=== PATIENT | male | born 1950 | race Caucasian/White ===

== ENCOUNTER 2017-03-17 07:27 | Outpatient (CLI) | payer MEDICARE ==
[2017-03-17 10:18] LABS: Bilirubin Negative (Negative); Blood, Urine Negative (Negative); Glucose, Urine (Dipstick) Negative (Negative); Ketone, Urine Negative (Negative); Nitrite Negative (Negative); Protein, Urine (Dipstick) Negative (Neg-Trace); Urobilinogen 0.2 mg/dL (0.2-1.0)
[2017-03-17 10:20] LABS: Bacteria/HPF None Seen HPF (None Seen); Hyaline Casts/LPF 0-3 HYALINE CAST LPF (0-3 Hyaline); RBC/HPF None Seen HPF (0-3); Squamous Epithelial None Seen HPF (0-3); WBC/HPF None Seen HPF (0-3)
[2017-03-17 11:03] LABS: ALT (SGPT) 12 U/L (8-55); AST (SGOT) 13 U/L (5-34); Alkaline Phosphatase 102 U/L (40-150); Anion Gap 11 mmol/L (10-20); BUN (Urea Nitrogen) 17 mg/dL (8.4-25.7); Bilirubin, Total 0.7 mg/dL (0.2-1.2); Calc. Creatinine Clearance 0 mL/min (70-130); Calcium 9.5 mg/dL (7.8-10.44); Carbon Dioxide 26 mmol/L (23-31); Chloride 107 mmol/L (98-107); Estimated GFR-MDRD 78; Protein, Total 7.1 g/dL (5.8-8.1)
--- NOTE | 2017-03-17 11:39 | CT ---
CT CHEST WITH IV CONTRAST: HISTORY: Kidney cancer. Initial staging. FINDINGS: There is no focal parenchymal lung mass or infiltrate. Minimal atelectasis is present at the depend ent portion of each lung. There is no pleural fluid, pneumothorax, or mediastinal adenopathy appare nt. The inferiormost images partially demonstrate the right renal mass that is better detailed on recent MRI and CT abdomen exam. IMPRESSION: No evidence of metastatic disease of the chest. POS: PLACIDO
--- NOTE | 2017-03-17 11:48 | MRI ---
MRI OF THE ABDOMEN WITHOUT AND WITH CONTRAST: Comparison: None. History: Malignant neoplasm of the right kidney. Technique: Multiplanar, multisequence MR images are obtained of the abdomen without and with IV cont rast. FINDINGS: There is a mass which appears infiltrative and involves the majority of the right kidney. This invol ves the hilar region of the right kidney. There is an exophytic portion of the mass extending latera l to the right kidney. This portion measures approximately 4.4 cm in size. There is tumor thrombus e xtending into the right renal vein which is enlarged. This tumor thrombus is also seen extending int o the inferior vena cava up to the inferior edge of the liver without involvement of the intrahepati c inferior vena cava. There are tiny nonenhancing foci of high T2 signal in both kidneys which represent simple cysts. The liver, gallbladder, adrenal glands, spleen and pancreas are unremarkable. No abdominal adenopathy i s seen. No marrow signal abnormality is seen to suggest osseous metastatic disease. IMPRESSION: 1. Mass involving the majority of the right kidney demonstrates tumor thrombus extending into the ri ght renal vein and up the inferior vena cava to the inferior edge of the liver. This is evidence for malignant disease with involvement of the venous structures which would make this a stage 3A. 2. Renal cysts. POS: KILEY
[2017-03-17] MEDS ORDERED: Iopamidol 370 76% 100 ML VIAL ONE (16:01)
[2017-03-17] MEDS ORDERED: Gadobenate Dimeglumine 529 MG/1 ML (20ML VIAL) ONE (16:02)
== END 2017-03-17 07:28 | disposition home or self-care (01) ==
LOC: MRI 07:27
PROVIDERS: ATTEND Urology
DX: C64.1 Malignant neoplasm of right kidney, except renal pelvis (principal); N28.1 Cyst of kidney, acquired
CPT/HCPCS: 36415; 71260; 74183; 80053; 81001; A9579

== ENCOUNTER 2017-03-23 10:34 | Outpatient (CLI) | payer MEDICARE ==
--- NOTE | 2017-03-23 14:59 | NM ---
WHOLE BODY BONE SCAN: Date: 03/23/17 CLINICAL HISTORY: Right renal malignancy, malignant neoplasm of right kidney. RADIOPHARMACEUTICAL: 30.2 mCi technetium-99m MDP, IV. No prior bone scan imaging available for comparison. FINDINGS: There is scattered degenerative activity of the axial and appendicular skeleton. No evidence of foca l radiotracer uptake to confirm blastic osseous metastasis No definitive photopenic regions to indic ate lytic osseous lesion within limitations. IMPRESSION: No scintigraphic evidence to confirm osseous metastatic disease. POS: PLACIDO
== END 2017-03-23 10:35 | disposition home or self-care (01) ==
LOC: NM 10:34
PROVIDERS: ATTEND Urology
DX: C64.1 Malignant neoplasm of right kidney, except renal pelvis (principal)
CPT/HCPCS: 78306; A9503

== ENCOUNTER 2017-05-10 08:35 | Inpatient (IN) | payer MEDICARE ==
[2017-05-10 09:12] LABS: #Basophils 0.1 thou/uL (0.0-0.2); #Eosinphils 0.2 thou/uL (0.0-0.7); #Lymphocytes 1.1 thou/uL (1.20-3.40); #Monocytes 0.7 thou/uL (0.11-0.59); #Neutrophils 3.4 thou/uL (1.40-6.50); %Eosinophils 3.3 % (0.0-10.0); %Lymphocytes 21.1 % (21.0-51.0); Hematocrit 39.2 % (42.0-52.0); Mean Platelet Volume 6.8 fL (7.4-10.4); Red Blood Cell (RBC) Count 4.18 mill/uL (4.70-6.10); White Blood Cell (WBC) Count 5.4 thou/uL (4.8-10.8)
[2017-05-10 09:31] LABS: ALT (SGPT) 50 U/L (8-55); AST (SGOT) 28 U/L (5-34); Alkaline Phosphatase 149 U/L (40-150); Anion Gap 11 mmol/L (10-20); BUN (Urea Nitrogen) 21 mg/dL (8.4-25.7); Bilirubin, Total 1.2 mg/dL (0.2-1.2); CK (CPK) 16 U/L (30-200); Calc. Creatinine Clearance 0 mL/min (70-130); Carbon Dioxide 25 mmol/L (23-31); Chloride 101 mmol/L (98-107); Estimated GFR-MDRD 56; Globulin 3.5 g/dL (2.4-3.5); Lipase 68 U/L (8-78); Protein, Total 7.2 g/dL (5.8-8.1)
[2017-05-10 09:37] LABS: PTT 36.4 SEC (22.9-36.1); Prothrombin Time 20.1 SEC (12.0-14.7); Troponin I Less than 0.010 ng/mL (< 0.028)
[2017-05-10 09:59] LABS: Bilirubin Small (Negative); Blood, Urine Large (Negative); Glucose, Urine (Dipstick) Negative (Negative); Ketone, Urine Negative (Negative); Nitrite Negative (Negative); Protein, Urine (Dipstick) 30 mg/dL (Neg-Trace); Urobilinogen 0.2 mg/dL (0.2-1.0)
[2017-05-10 10:00] LABS: Bacteria/HPF None Seen HPF (None Seen); Hyaline Casts/LPF 0-3 HYALINE CAST LPF (0-3 Hyaline); RBC/HPF GREATER THAN 50-TNTC HPF (0-3); Squamous Epithelial 0-3 HPF (0-3)
[2017-05-10] MEDS ORDERED: Enoxaparin Sodium 80 MG/0.8 ML SYRINGE ONE (11:39)
[2017-05-10] MEDS ORDERED: Acetaminophen 325 MG TAB PO PRN (12:22)
[2017-05-10] MEDS ORDERED: Ondansetron HCl/PF 4 MG/2 ML Vial IVP PRN (12:22)
[2017-05-10] MEDS ORDERED: Ondansetron ODT 4 MG TAB SL PRN (12:22)
[2017-05-10 12:24] LABS: Troponin I Less than 0.010 ng/mL (< 0.028)
--- NOTE | 2017-05-10 12:29 | CT ---
CT ANGIO CHEST PERFORMED WITH IV CONTRAST ENHANCEMENT WITH 3D RECONSTRUCTIONS: Date: 05/10/17 HISTORY: Patient is status post recent right nephrectomy, now with shortness of breath. COMPARISON: Multiple previous examinations including CT of the chest dated 03/17/17 and MRI of the abdomen dated 03/17/17, and CT of the chest dated 01/04/08. FINDINGS: Since the most recent chest CT, there has been development of some pleural based areas of parenchymal density in both lung aldridge. This is associated with fairly extensive bilateral pulmonary emboli. Th e largest emboli are in the right lower lobe and at the junction of left upper and lower lobes. Some of these pleural based changes are probably related to Stanford-type pumps related to pulmonary embolu s. No pleural effusion is seen. No significant mediastinum or hilar adenopathy. Liver parenchyma shows a hypodense focus in the dome of the liver. This is present on the prior 2007 exam and shows what appears to be some enhancement on previous CT of chest. Given its stability, it i s most likely hemangioma. The right renal bed is incompletely visualized. There is some low attenuation density seen in the upp er portion incompletely characterized. Consideration for CT for assessment of this area suggested if indicated. It could just be recent nephrectomy change. IMPRESSION: 1. Fairly extensive bilateral pulmonary emboli as discussed above. 2. Probable small hemangioma of the right lobe of the liver. 3. Postop nephrectomy change. The right renal bed is not completely visualized on this exam. There i s low attenuation density seen. This could represent some postsurgical change, possibly some clot in this region. If indicate, CT of the abdomen would be recommended. Findings telephoned to Dr. Driscoll. CODE CR. POS: [facility]
[2017-05-10] MEDS ORDERED: Amlodipine 10 MG TAB PO SCH (12:30)
[2017-05-10] MEDS ORDERED: cefTRIAXone\\ROCEPHIN 2 GM in Sodium Chloride 0.9% 100 ML IVPB SCH (13:00)
[2017-05-10] MEDS: HYDROcodone/Acetaminophen 10/325 mg Tablet PO PRN ×2 (13:43→19:54)
[2017-05-10] MEDS ORDERED: Polyethylene Glycol 3350 17 GM Packet PO SCH (14:00)
[2017-05-10 14:01] LABS: Hematocrit 37.5 % (42.0-52.0)
--- NOTE | 2017-05-10 14:28 | HP ---
PRIMARY CARE PHYSICIAN: Dr. William Delgado. CHIEF COMPLAINT: Blood in urine and abdominal pain. HISTORY OF PRESENT ILLNESS: This is a 66-year-old male patient of Dr. William Delgado's who was diagnos ed with renal cell carcinoma in 02/2017. He has been followed by Dr. Marroquin here for Urology as wel l as Dr. Montalvo for Oncology. Dr. Montalvo recommended a nephrectomy and patient was sent to [place] , I believe at [facility], Dr. Ayala where they performed a nephrectomy on 04/20/2017. The surgery was complicated by the tumor involving the renal vein as well as vena cava. He had thromboses that m igrated to the lungs, requiring ECMO therapy. He continued to have bleeding postoperatively and had to have thrombosis removed from the pulmonary arteries. He was then started on Lovenox and Coumadin for anti-coagulation. He had resultant wound VAC placed postoperatively and was discharged home foll owing his recovery from this. Pathology has revealed a stage 3 renal cell carcinoma with margins not clear. He had had an unremarkable postoperative stay at home except for pain, which was controlled with Raleigh until yesterday when he developed some darkening in his urine and then developed what his noticed was travis blood yesterday as well. He presented to the Emergency Department and was fou nd to have still a subtherapeutic INR on his Coumadin level, but gross blood in his urine. He was in any more anemic, but is being admitted for further evaluation, follow up with Urology and monitoring of his bleeding. PAST MEDICAL HISTORY: History of facial basal cell carcinoma, again recent diagnosis of stage 3 lorrie l cell carcinoma, history of hypertension, postoperative pulmonary embolism on anticoagulation, nephr olithiasis, hypertension, basal cell carcinoma and low back pain. MEDICATIONS: Include aspirin 81 mg discontinued, pravastatin 20 mg daily, hydrocodone 10/325 q.6 jey rs p.r.n. He is on Lovenox daily as well as Coumadin daily, omeprazole 10 mg daily, Norvasc 10 mg p. r.n., Bumex daily and stool softener daily. ALLERGIES: None known. PAST SURGICAL HISTORY: Hernia repair, right nephrectomy in 03/2017 And multiple skin cancer removal. FAMILY HISTORY: Father with lung cancer. Mother with liver cancer and heart disea se. Siblings with schizophrenia and breast cancer. SOCIAL HISTORY: Quit smoking in 1982 after a 12-year history of smoking 1-pack per day. No drug use . Positive caffeine. 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 He is . REVIEW OF SYSTEMS: As per the history of present illness. General: Denies any recent fevers, chill s or recent illness. HEENT: Denies headache, visual or hearing changes. Cardiac: Denies chest frederick n, shortness of breath or palpitations. Pulmonary: Denies cough, shortness of breath or hemoptysis. Gastrointestinal: Denies nausea, vomiting, abdominal pain, melena or hematochezia. Genitourinary: As per the history of present illness. Neurologic: Positive weakness. No seizures or syncope. PHYSICAL EXAMINATION: VITAL SIGNS: Temperature is afebrile, heart rate 80-90, blood pressure was 135/88 and pulse ox dean l. GENERAL: He is awake and alert, in no acute distress, resting comfortably in the stretcher. HEENT: Mucosa is moist. NECK: Supple. No JVD, adenopathy or bruits. HEART: Regular rate and rhythm. LUNGS: Clear. ABDOMEN: With wound VAC in place. Positive bowel sounds. Soft to light palpation. EXTREMITIES: No clubbing, cyanosis or edema. 2+ peripheral pulses bilaterally. LABORATORY DATA: White blood cell count 5.4 thousand, hemoglobin and hematocrit 12.7 and 39.2, plate lets 438. PT 20.1 and PTT of 36.4. INR of 1.7. Sodium 133, potassium 4.2, chloride 101, CO2 of 25, BUN and creatinine 21 and 1.28 with a GFR of 56. AST and ALT are normal. Cardiac enzymes are negat chel. Urinalysis revealed large blood while urinalysis from 1 week ago was negative for blood, brown color, 30 protein, small bilirubin, too numerous to count red blood cells. Urine culture is pending. CT of the chest is pending as well. ASSESSMENT AND PLAN: This is a 66-year-old gentleman with a; 1. History of hypertension and renal mass, now with newly diagnosed stage 3 renal cell carcinoma, no w with acute hematuria, on anticoagulation. 2. We will continue to monitor hemoglobin and hematocrit. 3. Stage 3 renal cell carcinoma with recent nephrectomy. We will consult Urology for evaluation. 4. Postoperative thrombosis with status post thrombectomy and resultant pulmonary embolism requiring anticoagulation. I will monitor closely. He is asymptomatic at this time, awaiting CT of the chest for further evaluation of pulmonary emboli and possibly can discontinue the Lovenox and continue Cou madin at this point. I will obtain pulmonary evaluation and further therapy and on anticoagulation. 5. Hypertension. We will continue Norvasc. 6. Analgesia. We will continue Raleigh for pain with GI protection.
[2017-05-10 14:32] LABS: Troponin I Less than 0.010 ng/mL (< 0.028)
[2017-05-10] MEDS ORDERED: ISOVUE-370 76%-LOCM 1 ML ONE (14:42)
--- NOTE | 2017-05-10 14:58 | CON ---
DATE OF CONSULTATION: 05/10/2017 CONSULTING PHYSICIAN: Hospitalist. CONSULTED PHYSICIAN: Dr. Alcides Marroquin with Urology. REASON FOR CONSULTATION: Gross hematuria. HISTORY OF PRESENT ILLNESS: Mr. Mora is a 66-year-old white male, which I have previously seen bakari dawn for a history of an extensive likely metastatic renal-cell carcinoma with IVC extension. At th at time, patient had significant right-sided flank pain and I have sent him to [facility] as well as Dr. Mckeon for consideration to the cytoreductive nephrectomy as well as adjuvant chemotherapy. He went to [facility] and received a right-sided cytoreductive nephrectomy; however, his postop co urse was complicated by intraoperative pulmonary embolism with tumor deposits, which went into the nallely ngs and caused bilateral pulmonary saddle embolism. The patient had to be put on ECMO and underwent an endovascular clot retrieval. The patient had a significantly prolonged hospital course, but was e ventually discharged with a wound VAC and on Coumadin with Lovenox bridge. He is still taking the Co umadin and Lovenox bridge until approximately yesterday, at which time, the patient began experiencin g painless gross hematuria, he came to the emergency room for this and was admitted for his hematuria . He denies any pain, dysuria, or difficulty with urination. He states the urine started out very r ed like Yazan-Aid, but now is lightning up and is more of a light translucent red. He is still taking the Coumadin and Lovenox as instructed. He denies any chest pain or shortness of breath at the curr ent time. His wound VAC is still in place. He is not having any difficulty with urination at the cu rrent time and denies any fevers or chills. At the time of his original CT scan, he did have hypoden sities noted in the contralateral kidney, which were too small to characterize and indeterminant on w hether they represented possible synchronous metastatic lesions versus benign processes. Of note, th e patient did have metastatic renal cell carcinoma in the clot, which was evacuated from the embolus done at [facility]. CURRENT MEDICATIONS: 1. Aspirin. 2. Pravastatin. 3. Lovenox. 4. Coumadin. 5. Norvasc. 6. Prilosec. 7. Merrick. 8. Colace. 9. Multivitamin. 10. Mupirocin cream. ALLERGIES: None. PAST MEDICAL HISTORY: 1. Nephrolithiasis. 2. Hypertension. 3. Basal cell carcinoma near the left eye. 4. Lower back pain. 5. Hyperlipidemia. 6. Metastatic renal cell carcinoma. 7. Saddle pulmonary embolisms. PAST SURGICAL HISTORY: 1. Right inguinal hernia repair. 2. Right nephrectomy with IVC thrombectomy. 3. Endovascular clot retrieval and taken back to surgery for delayed closure of his subcostal incisi on. FAMILY HISTORY: Significant for lung cancer, hypertension, stroke, cardiovascular disease, schizophr enia, and breast cancer. SOCIAL HISTORY: Patient is a former smoker, but quit in 1982. He does drink about 3-4 alcoholic radha erages per week, but he has not recently since his surgery. He denies any illicit drug use. 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 REVIEW OF SYSTEMS: A 12-point review of systems is unremarkable other than what was commented on in the HPI. Specifically, he denies any current chest pain or shortness of breath, lower extremity swel ling, dizziness, fevers or chills, dysuria, difficulty with urination, suprapubic pain, flank pain. He is still having the gross hematuria. Remainder of 12-point review of systems are reviewed and oth erwise negative. PHYSICAL EXAMINATION: VITAL SIGNS: Temperature 98.4, pulse 76, respirations 18, blood pressure 129/86, saturation 99% on r oom air. GENERAL: No apparent distress, communicative, alert, well nourished, well developed, appears stated age. HEENT: Normocephalic, atraumatic. Pupils are symmetric and round. Sclerae nonicteric. Trachea mid line. CARDIOVASCULAR: Regular rate and rhythm. Normal S1 and S2. Symmetric pulses. CHEST: No increased work of breathing. Symmetric expansion of lungs. Clear to auscultation anterio rly. ABDOMEN: Soft, nontender, nondistended. Wound VAC in place under subcostal Chevron-type incision. No obvious organomegaly. No cellulitis surrounding the wound VAC. No suprapubic tenderness. Positiv e bowel sounds. GENITOURINARY: Uncircumcised penis. No blood at the meatus. Testes are bilaterally descended. No scrotal edema. RECTAL: Rectal exam is deferred. There is a right groin dressing over his groin stick site for his ECMO. I did not take down the dressing, as it is properly dressed at the current time. EXTREMITIES: No clubbing, cyanosis, or edema. MUSCULOSKELETAL: No joint deformities or joint erythema noted. Full range of motion, good strength. NEUROLOGIC: Cranial nerves II-XII grossly intact. No focal or sensory, motor deficits identified. SKIN: Warm, dry, good turgor, no rashes. PSYCHIATRIC: Alert and oriented x3, slightly somnolent but otherwise appropriate mood and affect for his situation. LABORATORY EVALUATION: A full set of labs are in the [facility] system, which I have reviewed. Of not e, the patient's white count is 5.4 with hemoglobin of 12.7. INR is currently 1.7, creatinine is 1.2 8 with a sodium of 133. Troponins are less than 0.01. CT angiogram done from 05/10/2017 demonstrate s fairly extensive bilateral pulmonary emboli with probable small hemangioma in the right lobe of the liver, postoperative nephrectomy changes are present with right renal bed, not completely visualized on the exam secondary to it being a chest CT. ASSESSMENT AND PLAN: A 66-year-old white male with likely metastatic renal cell carcinoma, status po st right-sided cytoreductive nephrectomy with IVC thrombectomy complicated by pulmonary saddle emboli and cor pulmonale, currently recovering on blood thinners. He has developed gross hematuria spontan eously, which is painless, which may be secondary to a prosthetic. Veins bleed or other process whic h is currently undefined. The proper workup for his hematuria would be a CT urogram/hematuria protoc ol with cystoscopy. Given that he has just received a fairly large contrast load with a solitary kid frank, I would not be eager to perform a hematuria protocol with an additional contrast bolus immediate ly since his hematuria is seeming to clear up; I think we could just monitor his hematuria and once i t resolves or is light, we could consider an outpatient hematuria workup with CT urogram and cystosco py to evaluate his bleeding. At the current time, I would not stop his Coumadin or Lovenox if his he maturia is improving, as propagation of saddle emboli could lead to more significant problems than ma naging his hematuria. To monitor his hematuria, I will recommend serial urine collection starting th is evening and I will reevaluate tomorrow morning. If his hematuria improves significantly, I think he could potentially be discharged home. If his hematuria is persisting, then we may potentially mon itor him in the hospital until he is at least a few days out and he could potentially receive a CT ur ogram and cystoscopy while in the hospital. I would not recommend a Albrecht catheter in this individua l unless he is in clot retention or unable to urinate as a Albrecht catheter may potentially exacerbate his hematuria and we will not necessarily address his hematuria unless CBI is being planned. SUMMARY OF RECOMMENDATIONS: 1. No Albrecht catheter at this time. 2. Continue to monitor urine color and hematuria severity over the next 24 hours with serial urine c ollection starting this evening. 3. Continue blood thinners for saddle embolism. 4. Renal cell carcinoma is currently being managed by Mirza Giposn and Dr. Mckeon in [facility]. No current management changes necessary at this time. 5. We will continue to follow.
[2017-05-10 16:58] LABS: Hematocrit 36.6 % (42.0-52.0)
[2017-05-10] MEDS: Warfarin Sodium 5 MG TAB PO SCH (17:03)
[2017-05-10] MEDS: Docusate 100 MG CAP PO SCH (19:54)
[2017-05-10] MEDS: Simvastatin 5 MG TAB PO SCH (19:54)
[2017-05-10] MEDS: Enoxaparin Sodium 80 MG/0.8 ML SYRINGE SC SCH (19:55)
--- NOTE | 2017-05-10 21:50 | ULT ---
BILATERAL LOWER EXTREMITY VENOUS DOPPLER: Date: 05/10/17 HISTORY: Pulmonary embolism. COMPARISON: None. FINDINGS: Real-time Jolly scale and color Doppler with spectral analysis of the bilateral lower extremity venous system was performed with the linear transducer. Bilateral common femoral, femoral, proximal portion s of greater saphenous and deep femoral veins, as well as the popliteal and posterior tibial veins ar e interrogated. Normal flow, augmentation, and compression. IMPRESSION: No deep venous thrombosis. POS: PLACIDO
[2017-05-11] MEDS: HYDROcodone/Acetaminophen 10/325 mg Tablet PO PRN ×4 (01:58→20:58)
[2017-05-11 04:59] LABS: #Basophils 0.1 thou/uL (0.0-0.2); #Eosinphils 0.2 thou/uL (0.0-0.7); #Lymphocytes 1.6 thou/uL (1.20-3.40); #Monocytes 0.6 thou/uL (0.11-0.59); #Neutrophils 2.6 thou/uL (1.40-6.50); %Basophils 1.5 % (0.0-1.0); %Eosinophils 4.7 % (0.0-10.0); %Lymphocytes 31.1 % (21.0-51.0); %Monocytes 12.1 % (0.0-10.0); Hematocrit 33.5 % (42.0-52.0); Mean Platelet Volume 7.1 fL (7.4-10.4); Red Blood Cell (RBC) Count 3.54 mill/uL (4.70-6.10); White Blood Cell (WBC) Count 5.2 thou/uL (4.8-10.8)
[2017-05-11 05:05] LABS: Prothrombin Time 22.1 SEC (12.0-14.7)
[2017-05-11 05:09] LABS: Anion Gap 9 mmol/L (10-20); BUN (Urea Nitrogen) 21 mg/dL (8.4-25.7); Calc. Creatinine Clearance 55 mL/min (70-130); Calcium 8.6 mg/dL (7.8-10.44); Carbon Dioxide 25 mmol/L (23-31); Chloride 102 mmol/L (98-107); Estimated GFR-MDRD 57
--- NOTE | 2017-05-11 07:59 | PRG ---
DATE OF SERVICE: 05/11/2017 SUBJECTIVE: The patient's pain remains stable. No increase in pain. Still requires [place] about santa ry 6 hours. Blood in the urine remains also stable. OBJECTIVE: VITAL SIGNS: Temperature 98.3, pulse 64, blood pressure 115/71, respirations 18, pulse ox 97. GENERAL: Patient appears well except for the abdominal pain. HEART: Regular rate and rhythm. LUNGS: Clear. ABDOMEN: Soft, bowel sounds present. Mild diffuse tenderness. EXTREMITIES: No edema. LABORATORY AND X-RAY FINDINGS: INR 1.9, hemoglobin decreased from 12.7 to 12.5 to 12.0 to 11.0, jimmy tocrit 39.2 to 33.5, platelets 394. Three glass urine shows increased concentrated urine with blood. ASSESSMENT: 1. Hematuria, probably related to post right nephrectomy on 04/20/2017 as well as from Coumadin and Lovenox. A large part of this may be simply due to the Lovenox and Coumadin. 2. Anticoagulant therapy. INR this morning is 1.9. Getting real close to stopping the Lovenox. We will recheck the INR in the morning. 3. Status post right nephrectomy on 04/20/2017, patient appears to be recovering well. Observation may be the best option in order to minimize the contrast load to the solitary kidney. 4. Pulmonary emboli appears to be stable. No complaints of shortness of breath or chest pain. 5. Hypertension. PLAN: 1. Continue to observe. 2. Recheck CBC, BMP, INR in the a.m. 3. Hopefully, can stop the Lovenox soon. 4. Continue to monitor the urine. 5. Obtain a Wound Care consult to replace the wound VAC. 6. Renal cell carcinoma stage 3 pending follow up with Dr. Mckeon.
[2017-05-11] MEDS: Docusate 100 MG CAP PO SCH ×2 (08:47→20:27)
[2017-05-11] MEDS: Enoxaparin Sodium 80 MG/0.8 ML SYRINGE SC SCH ×2 (08:49→20:29)
[2017-05-11] MEDS: Polyethylene Glycol 3350 17 GM Packet PO SCH (08:49)
[2017-05-11] MEDS ORDERED: Enoxaparin Sodium 40 MG/0.4 ML SYRINGE SC SCH (09:00)
[2017-05-11] MEDS ORDERED: Lidocaine 4% Topical Sol 50 ML BOT TOP PRN (09:10)
--- NOTE | 2017-05-11 09:31 | PRG ---
DATE OF SERVICE: 05/11/2017 SUBJECTIVE: The patient states he is feeling fine. He has no major change since yesterday. He is n ot complaining of any significant pain. He states his hematuria has persisted overnight. He is not having any difficulty with urination or burning and denies any passage of clots. OBJECTIVE: VITAL SIGNS: Temperature 97.2, pulse 65, respirations 16, blood pressure 115/71, saturation 96% on r oom air. GENERAL: No apparent distress, communicative and alert. CARDIOVASCULAR: Regular rate and rhythm. CHEST: No increased work of breathing. ABDOMEN: Soft, nontender, nondistended. Wound VAC in place without cellulitis. GENITOURINARY: Normal. No lesions. No blood at the meatus. No scrotal edema. EXTREMITIES: No clubbing, cyanosis or edema. LABORATORY DATA: On laboratory evaluation, the full set of labs in the [facility] system, which I have reviewed. Of note, the patient's hemoglobin has decreased somewhat to 11. INR today is 1.9, creati nine is 1.27 with a sodium of 132. Urinalysis from the th yesterday demonstrates brown urine, larg e blood, no bacteria, nitrite negative, leukocyte esterase negative. Urine culture preliminary resul ts demonstrate no findings, further incubation is required. ASSESSMENT AND PLAN: A 66-year-old white male with advanced metastatic renal cell carcinoma, status post cytoreductive nephrectomy with IVC thrombectomy complicated by pulmonary embolisms, now with luis ss hematuria. I would recommend stopping the patient's Coumadin at the current time since his hemogl obin is decreasing, but I would leave him on Lovenox. Lovenox can be stopped and reversed very rapid ly, which will be more beneficial in this patient's time of bleeding. I would still not recommend cy stoscopy and fulguration of any potential bleeding sites as this generally does the poor job of contr olling venous bleeding and would generally restart the bleeding process back at square one where is t he bleeding restarts, which happens frequently. Generally cystoscopy and fulguration is reserved for severe hemorrhage or refractory bleeding that is not stopping for other reasons. At the time being, I would recommend just Lovenox and monitoring for another 24-48 hours. If the patient's hematuria d oes not start improving, I would potentially consider stopping the Lovenox as well for 48 hours with permission of Dr. Redman and Dr. Delgado regarding his pulmonary embolisms. If they feel that it is saf e, then I would stop the Lovenox and see if his hematuria will clear within 2 days at which time the Lovenox can be restarted. If it is absolutely imperative that his Lovenox has not stopped, then I wo uld consider potential cystoscopy with fulguration if the bleeding persists or becomes heavier at rene t point. Ultimately, the patient will need a CT urogram and cystoscopy, but for now we are deferring as cystoscopy will be difficult with the level of the patient's hematuria and the CT should not be d one at the current time as he recently received a large contrast load with the solitary kidney for CT angiogram. I will continue to follow along and leave recommendations.
--- NOTE | 2017-05-11 12:21 | PRG ---
DATE OF SERVICE: 05/11/2017 SUBJECTIVE: A 66-year-old gentleman. This morning, he is less short of breath, still having hematur ia. OBJECTIVE: VITAL SIGNS: Sats 97, pulse 65, blood pressure 100/69. CHEST: Decreased breath sounds without any wheezing. CARDIAC: Normal S1, S2. ABDOMEN: Soft, no masses. LABORATORY DATA: White count 5000, H&H 11 and 33. His INR is 1.9. Electrolytes are normal. Sodium 132. IMPRESSION: 1. Bilateral pulmonary emboli, probably tumor. 2. No evidence of deep venous thrombosis. 3. Recent nephrectomy. PLAN: Continue Lovenox and Coumadin. We will discuss this with Oncology for ongoing issues. Will follow.
[2017-05-11 13:54] VITALS: BMI 21.4
[2017-05-11] MEDS: Warfarin Sodium 5 MG TAB PO SCH (16:48)
--- NOTE | 2017-05-11 17:38 | CON ---
DATE OF CONSULTATION: 05/11/2017 REASON FOR CONSULTATION: Renal cell carcinoma. HISTORY OF PRESENT ILLNESS: Mr. Mora is a 66-year-old gentleman who was diagnosed with renal cell carcinoma in 02/2017. He had a 6 x 6.5 x 8.4 large right kidney mass infiltrating into the posterior perirenal space that is extending into the pelvis and appeared to involve the right renal vein and the inferior vena cava. There was thrombosis involving the vena cava to the inferior edge of the liver without involvement of the intrahepatic vessels. There was no evidence of metastatic disease. The decision was made for neoadjuvant resection. He was referred to Dr. Ayala at [facility]. He saw Dr. Ayala in March, a right-sided cytoreductive nephrectomy was performed with inferior vena cava reconstruction. Fortunately, he had intraoperative pulmonary embolism with tumor deposits in his lungs. He was placed on ECMO and underwent retrieval. It was positive for renal cell carcinoma. The patient was started on Coumadin with a Lovenox bridge. He was discharged from [facility] approximately 1 week ago. He denied any hematuria until the of this month when he presented to the emergency room for gross hematuria. He had a chest and thorax CT angiogram which again showed extensive bilateral pulmonary emboli. His Coumadin has been continued, his Lovenox is continued, but at lower dose. We were asked to see the patient for our recommendations. PAST MEDICAL HISTORY: 1. Renal cell carcinoma stage III. 2. Hypertension. 3. Hyperlipidemia. 4. Multiple basal cell carcinoma skin cancers. 5. Kidney stones. 6. Hemorrhoids. PAST SURGICAL HISTORY: 1. Skin cancer excisions. 2. Hernia repair. FAMILY HISTORY: The patient's mother had liver cancer. Father had lung cancer , sister had breast cancer. SOCIAL HISTORY: , has 2 children, lives with his spouse, have 13-pack- year of smoking, quit in 1982. No alcohol or illicit drug use. ALLERGIES: No known drug allergies. HOME MEDICATIONS: 1. Tylenol #3 p.r.n. 2. Bumex 0.5 mg daily. 3. Colace 100 mg daily. 4. Lovenox 80 mg b.i.d. 5. [place] p.r.n. 6. Prilosec 20 mg daily. 7. Coumadin 5 mg daily. REVIEW OF SYSTEMS: Constitutional: No fever, chills, night sweats. Eyes: No blurred or double vision. ENT: No pain, hoarseness, sore throat, or dysphagia. Cardiovascular: No chest pain, palpitations or syncope. Respiratory: Positive for shortness of breath, dyspnea on exertion, no hemoptysis or orthopnea. Gastrointestinal: No nausea, vomiting, diarrhea, constipation or abdominal pain. Genitourinary: No dysuria and positive for hematuria. Musculoskeletal: No joint or back pain. Skin: Positive for abdominal wound. Hematologic: No petechia or purpura. Neurologic: No weakness, headache, numbness, tingling or seizure activity. Psychiatric: No anxiety or depression. PHYSICAL EXAMINATION: VITAL SIGNS: Temperature is 98.5, pulse is 64, respiratory rate 12, blood pressure is 115/77. He is 99% on room air. GENERAL: Well-developed, well-nourished male in no acute distress. HEENT: Normocephalic, atraumatic. Pupils equal and reactive to light. NECK: Supple. CARDIOVASCULAR: Regular rate and rhythm. LUNGS: Clear to auscultation. ABDOMEN: Soft. He has a right lower quadrant incision with a wound VAC in place. EXTREMITIES: No clubbing or cyanosis. SKIN: No rash. HEMATOLOGIC: No petechia or purpura. NEUROLOGICAL: Nonfocal. PSYCHIATRIC: The patient is alert and oriented and appropriate. PERTINENT LABORATORY DATA AND X-RAYS: Current WBCs are 5.2, hemoglobin 11, hematocrit 33.5, platelet count is 394,000, 50% neutrophils, 31% lymphocytes, 12 % monocytes, PT is 22.1, INR is 1.9. Sodium is 132, potassium 4.1, chloride 102 , CO2 is 25, BUN is 21, creatinine 1.27, calcium is 8.6, total bilirubin is 1.2 , AST is 28, ALT is 50, alkaline phosphatase 149. Troponin was negative. Serum total protein 7.2, albumin 3.7, globulin 3.5, lipase 68. Urine is positive for blood, negative for bacteria. Radiology per HPI. ASSESSMENT: 1. Renal cell carcinoma, status post nephrectomy. 2. Intraoperative pulmonary embolism with tumor emboli, on Coumadin and Lovenox. 3. Hematuria, likely secondary to #2. DISCUSSION: Case has been discussed in detail with Dr. Montalvo. The patient's INR is 1.9. Recommend holding Lovenox and continuing Coumadin to keep the INR between [address] Marroquin is managing his hematuria, but this is likely secondary to anticoagulation. His anticoagulation must be continued given his extensive pulmonary emboli. There is no chemotherapy in treatment plan at this time. He requires close monitoring with CT scan to follow the pulmonary embolism and monitor for any tumor that remains. He will follow up with Dr. Montalvo next week. Thank you for the consult. We will follow him closely. ROCIO
[2017-05-11] MEDS: Simvastatin 5 MG TAB PO SCH (20:28)
[2017-05-12] MEDS: HYDROcodone/Acetaminophen 10/325 mg Tablet PO PRN ×4 (03:58→23:47)
[2017-05-12 04:53] LABS: #Basophils 0.1 thou/uL (0.0-0.2); #Eosinphils 0.3 thou/uL (0.0-0.7); #Lymphocytes 1.5 thou/uL (1.20-3.40); #Monocytes 0.6 thou/uL (0.11-0.59); #Neutrophils 2.8 thou/uL (1.40-6.50); %Basophils 1.3 % (0.0-1.0); %Eosinophils 5.8 % (0.0-10.0); %Lymphocytes 28.2 % (21.0-51.0); %Monocytes 11.1 % (0.0-10.0); Hematocrit 33.7 % (42.0-52.0); Mean Platelet Volume 7.5 fL (7.4-10.4); Red Blood Cell (RBC) Count 3.57 mill/uL (4.70-6.10); White Blood Cell (WBC) Count 5.3 thou/uL (4.8-10.8)
[2017-05-12 04:55] LABS: PTT 44.3 SEC (22.9-36.1); Prothrombin Time 21.5 SEC (12.0-14.7)
[2017-05-12 05:02] LABS: Anion Gap 9 mmol/L (10-20); BUN (Urea Nitrogen) 22 mg/dL (8.4-25.7); Calc. Creatinine Clearance 51 mL/min (70-130); Calcium 8.5 mg/dL (7.8-10.44); Carbon Dioxide 26 mmol/L (23-31); Chloride 107 mmol/L (98-107); Estimated GFR-MDRD 52
--- NOTE | 2017-05-12 08:29 | PRG ---
DATE OF SERVICE: 05/12/2017 SUBJECTIVE: The patient is tolerating a regular diet. His abdominal pain has improved. He does sta te his hematuria has become worse today. He is ambulating in the halls. OBJECTIVE: VITAL SIGNS: Temperature 98.4, pulse 67, respirations 16, pulse ox 98, blood pressure 116/73. HEART: Regular rate and rhythm. LUNGS: Clear. ABDOMEN: Soft. Decreased tenderness diffusely. EXTREMITIES: With no edema. LABORATORY: Sodium 138, potassium 4.3, creatinine 1.36 up from 1.27, BUN 22, glucose 98. ASSESSMENT: 1. Gross hematuria, worsening. 2. Chronic kidney disease stage 3, creatinine rising. 3. Postop status post right nephrectomy. 4. Metastatic renal cell cancer. 5. Pulmonary emboli, tumor positive. 6. Hypertension. 7. Hyperlipidemia. 8. History of kidney stones. PLAN: 1. I talked at length with Dr. Redman. Dr. Marroquin is recommending stopping the Coumadin. We will s top the Coumadin for now. His hematuria is becoming worse. We will have to restart eventually, but in the patient's best interest it would probably be better to stop the Coumadin because of long half- life. We will consider other anticoagulants once the hematuria improves. 2. Appreciate Dr. Montalvo and Ms. Mcgowan, JOELLE. 3. Continue Lovenox for now at 70 subcu b.i.d. 4. Recheck CBC and BMP in the a.m. 5. Continue to monitor urine. 6. We cannot discharge the patient home until this urine improves.
[2017-05-12] MEDS: Docusate 100 MG CAP PO SCH ×2 (08:47→21:30)
[2017-05-12] MEDS: Polyethylene Glycol 3350 17 GM Packet PO SCH (08:48)
[2017-05-12] MEDS: Enoxaparin Sodium 80 MG/0.8 ML SYRINGE SC SCH ×2 (08:48→22:34)
--- NOTE | 2017-05-12 10:11 | PRG ---
DATE OF SERVICE: 05/12/2017 The patient had no shortness of breath, no coughing. Still having some abdominal pain. PHYSICAL EXAMINATION: VITAL SIGNS: Temperature 98, respirations 16, blood pressure 117/80, sat 98% on room air. CHEST: Chest reveals decreased breath sounds without any wheezing. CARDIAC: Normal S1 and S2. LABORATORY: Creatinine 1.36, white count 5000, H&H 11 and 33, platelet count is normal. IMPRESSION: 1. Bilateral pulmonary emboli, felt to be tumor emboli. 2. No evidence of deep venous thrombosis. 3. Azotemia. 4. INR is 1.8 on 5 of Coumadin. PLAN: Urology would want to stop the Coumadin until his gross [place] colored hematuria resolves. I ag ree, I will continue Lovenox, however. Continue supportive care. I will follow.
--- NOTE | 2017-05-12 10:33 | PRG ---
DATE OF SERVICE: 05/12/2017 SUBJECTIVE: The patient states he is feeling fine. Denies any pain, dysuria, difficulty urinating, passing of clots, flank pain or significant abdominal pain. He states his hematuria has not really c hanged. Dr. Delgado has agreed to stop the patient's Coumadin and he is currently just being maintain ed on Lovenox for his extensive pulmonary embolisms. OBJECTIVE: VITAL SIGNS: Temperature 98.4, pulse 67, respirations 16, blood pressure 117/80, saturation 98% on r oom air. GENERAL: No apparent distress, communicative and alert. CARDIOVASCULAR: Regular rate and rhythm. ABDOMEN: Soft, nontender, nondistended. Wound VAC in place without cellulitis. GENITOURINARY: No changes to exam, nonfocal. EXTREMITIES: No clubbing, cyanosis or edema. LABORATORY DATA: The patient's urine was inspected which has been stored in the bathroom. It has th e same level of hematuria with some maroon-colored urine without clots. This has not significantly i mproved from yesterday. ASSESSMENT AND PLAN: A 66-year-old white male with gross hematuria of unknown etiology, compounded w ith anticoagulation due to extensive pulmonary embolisms from site of reductive nephrectomy. The pat ient is now off of Coumadin, which I would agree with. His Lovenox can be tried titrated and held in case of a significant bleeding event. At the current time, the patient's hematuria is not bad enoug h to warrant cystoscopy and fulguration. Fulguration will likely cause persistent bleeding as genera lly fulguration works best on arterial bleeders and does not generally help much with venous oozing. Additionally, if fulguration is performed there will likely be extensive damage to the urothelium an d the area fulgurated and this ultimately is what we will stop his bleeding. When the patient has re epithelialization of the bleeding area his bleeding will stop and fulguration while it may temporaril y stop the bleeding, the bleeding is likely to restart and will have to go to reepithelialization whi ch will ultimately delay his recovery and his ability to get back on his full dose of anticoagulation . For the time being the patient's hematuria is also not bad enough to necessarily states that he mu st come off of his anticoagulation. If his hematuria worsens or is not significantly improving, if i t is possible his Lovenox can be held for either 24-48 hours with permission of Dr. Redman or Dr. Sandi murcia. If they feel that this is too risky than he will need to remain on his Lovenox and we will just mo nitor his urine. It may take anywhere from 2-4 weeks for his hematuria ultimately to resolve. The p [place] may be able to be discharged so long as he has several days of stable and easy urination despi te his hematuria. At the current time, we will start his hematuria workup as he has now had several days from his CT angiogram with his contrast load. He will need a CT urogram which we will repeat a contrast load. His GFR is above 50, but I have told him he will need to hydrate extensively to try a nd avoid potential further renal injury. I would expect some minor bumping of his creatinine after a nother contrast load, but we will monitor him in the hospital. A CT urogram would be very helpful in trying to elucidate the etiology of his hematuria. Ultimately, the patient will also need a cystosc opy, although at the current time with the level of hematuria that he has, this will be extremely dif ficult as visualization will be extremely poor with the amount of hematuria present. I will continue to follow along and offer advice. SUMMARY OF RECOMMENDATIONS: 1. Continue Lovenox and hold Coumadin. 2. No plans for cystoscopy and fulguration at this time as it will be of limited benefit with signif icant risks of repeated anesthesia. 3. CT urogram today. 4. The patient counseled to hydrate extensively today to try and flush out contrast and avoid signif icant acute kidney injury. 5. If possible, the patient's Lovenox can be held for 24-48 hours. If this is too risky we will jus t continue Lovenox usage and await resolution of the patient's hematuria which it will stop eventuall y, but may take anywhere from 2-4 weeks.
--- NOTE | 2017-05-12 13:50 | CT ---
PRE AND POST CONTRAST ENHANCED CT ABDOMEN AND PELVIS: Date: 05-12-17 History: Hematuria. Patient with right sided nephrectomy, March 2017. Technique: Pre and post contrast enhanced CT images of the abdomen and pelvis obtained. FINDINGS: Images demonstrate bibasilar areas of patchy density compatible with areas of scar or patchy pneumoni a. The liver and spleen are unremarkable. Small amount of fluid seen surrounding the liver and in the pr evious renal fossa. Numerous surgical clips seen in the retroperitoneum. There is a right upper quadr ant incision. The spleen is unremarkable. The liver contains some hypodense areas, possibly represent ing hepatic cysts, two small to characterize. The pancreas is unremarkable. The gallbladder is unrema rkable. No evidence of periaortic lymphadenopathy seen. No dilated loops of small bowel seen. Numerous sigmoi d diverticula are seen. Cortical cysts and small area of calcification seen in the left kidney. IMPRESSION: 1. Status post right sided nephrectomy with some post-surgical fluid in the renal fossa. 2. Small amount of fluid adjacent to the liver. 3. Right upper quadrant abdominal incision. POS: PLACIDO
[2017-05-12] MEDS ORDERED: Iopamidol 370 76% 100 ML VIAL ONE (13:55)
[2017-05-12 14:21] LABS: Hematocrit 33.7 % (42.0-52.0)
[2017-05-12] MEDS: Simvastatin 5 MG TAB PO SCH (21:30)
[2017-05-13 04:49] LABS: #Basophils 0.1 thou/uL (0.0-0.2); #Eosinphils 0.2 thou/uL (0.0-0.7); #Lymphocytes 1.9 thou/uL (1.20-3.40); #Monocytes 0.6 thou/uL (0.11-0.59); #Neutrophils 2.4 thou/uL (1.40-6.50); %Eosinophils 4.7 % (0.0-10.0); %Monocytes 11.5 % (0.0-10.0); Hematocrit 31.2 % (42.0-52.0); Mean Platelet Volume 7.1 fL (7.4-10.4); White Blood Cell (WBC) Count 5.2 thou/uL (4.8-10.8)
[2017-05-13 04:58] LABS: PTT 45.1 SEC (22.9-36.1); Prothrombin Time 20.4 SEC (12.0-14.7)
[2017-05-13 05:12] LABS: Anion Gap 9 mmol/L (10-20); BUN (Urea Nitrogen) 21 mg/dL (8.4-25.7); Calc. Creatinine Clearance 48 mL/min (70-130); Calcium 8.6 mg/dL (7.8-10.44); Carbon Dioxide 26 mmol/L (23-31); Chloride 107 mmol/L (98-107); Estimated GFR-MDRD 49
[2017-05-13] MEDS: HYDROcodone/Acetaminophen 10/325 mg Tablet PO PRN (07:28)
[2017-05-13] MEDS: Docusate 100 MG CAP PO SCH (07:30)
[2017-05-13] MEDS: Polyethylene Glycol 3350 17 GM Packet PO SCH (07:30)
[2017-05-13] MEDS: Enoxaparin Sodium 80 MG/0.8 ML SYRINGE SC SCH (07:57)
[2017-05-13 08:14] VITALS: BP 107/72; TEMP 98.3
--- NOTE | 2017-05-13 09:45 | PRG ---
DATE OF SERVICE: 05/13/2017 PHYSICAL EXAMINATION: VITAL SIGNS: Sats 96% on room air, respirations 16, temperature 98, blood pressure 100/72. CHEST: Denied any difficulty breathing Chest pain. He is still having gross hematuria. LABORATORY: His H&H is 10 and 31. White count 5000, platelet count 323. INR is 1.7. Urine is grow ing Enterococcus sensitive to the present antibiotic. IMPRESSION: 1. Nephrectomy, tumor emboli. 2. Pulmonary embolus. 3. Urinary tract infection. PLAN: He can be discharged home on empiric antibiotics. Continue anticoagulation with Lovenox. Fol low up with Dr. Montalvo.
--- NOTE | 2017-05-13 11:02 | DIS ---
DATE OF ADMISSION: 05/10/2017 DATE OF DISCHARGE: 05/13/2017 DISCHARGE DIAGNOSES: 1. Gross hematuria. 2. Chronic kidney disease stage 3. 3. Status post right nephrectomy with emboli. 4. Metastatic renal cell cancer. 5. Pulmonary emboli, tumor positive. 6. Hypertension. 7. Hyperlipidemia. 8. History of kidney stones. BRIEF HISTORY: This is a 66-year-old white male diagnosed with renal cell carcinoma in 02/2017. He is followed by Dr. Marroquin and Dr. Montalvo. Patient did undergo a nephrectomy on 04/20/2017. Surger y was complicated by the tumor involving the renal vein as well as the vena cava. A thrombotic lesio n did migrate to the lungs requiring ECMO therapy. He continued to bleed postoperatively and had the thrombosis removed from the pulmonary arteries. He was then started on Lovenox and Coumadin. He wa s then discharged with a wound VAC. Also, pathology did reveal stage 3 renal cell carcinoma with mar gins not clear. He was doing well until the day prior to admission when he developed dark bloody uri ne. As this was becoming progressively worsening, he presented to the emergency room for further adrian luation. HOSPITAL COURSE: Initially, it was attempted to titrate the Coumadin to the appropriate levels. How ever, the patient's bleeding persisted and became worse. It was then decided apprehensively to stop the Coumadin. At this time, we are continuing simply the Lovenox at 70 mg q.12 hours. Yesterday, he did have urine that was starting to clear. The patient has remained relatively pain free. He was i nitially taking [place] q.6 hours, now he is taking it approximately q.12 hours. He and his are a nxious to go home. He did receive a CT urogram, which was found to be unremarkable. His creatinine did rise slightly and his blood count still has decreased slightly; however, the patient clinically i s doing quite well. 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 They have been advised to return for any increased bleeding, increased pain, nausea, vomiting, chest pain or shortness of breath. For now, he will continue with his Lovenox 70 b.i.d. and [place] as needed. He will follow up with Dr. Montalvo on Thursday. He will f ollow up with me in 2 weeks and he will also follow up with Dr. Redman and Dr. Marroquin. Discharge H&H is 10 and 31, platelets 323, sodium 138, potassium 4.4, creatinine 1.45 and BUN 21. The has bee n instructed to inform Dr. Montalvo to obtain a CBC and a BMP on Thursday.
== END 2017-05-13 11:25 | disposition home health service (06) | DRG 695 ==
LOC: ERS 08:35 → 2SW 12:20 → OBSVTOIN 05-12 11:53 → T4-A 05-12 14:34
PROVIDERS: ADMIT Family Medicine; ATTEND Family Medicine
DX: R31.0 Gross hematuria (principal); I26.99 Other pulmonary embolism without acute cor pulmonale; D68.32 Hemorrhagic disorder due to extrinsic circulating anticoagulants; C64.1 Malignant neoplasm of right kidney, except renal pelvis; N18.3 Chronic kidney disease, stage 3 (moderate); B95.2 Enterococcus as the cause of diseases classified elsewhere; I12.9 Hypertensive chronic kidney disease with stage 1 through stage 4 chronic kidney disease, or unspecified chronic kidney disease; N39.0 Urinary tract infection, site not specified; E78.5 Hyperlipidemia, unspecified; Z87.891 Personal history of nicotine dependence; Z87.442 Personal history of urinary calculi; Z90.5 Acquired absence of kidney; T45.515A Adverse effect of anticoagulants, initial encounter; Z85.828 Personal history of other malignant neoplasm of skin
CPT/HCPCS: 36415; 71275; 74178; 80048; 80053; 81003; 81015; 82553; 83690; 84484; 85025; 85610; 85730; 87077; 87086; 87186; 93005; 93970; 96372; J0696; J1650; J2001; J7050

== ENCOUNTER 2017-05-18 19:21 | Inpatient (IN) | payer MEDICARE ==
[2017-05-18 19:53] LABS: #Lymphocytes 1.4 thou/uL (1.20-3.40); #Monocytes 1.2 thou/uL (0.11-0.59); %Eosinophils 0.3 % (0.0-10.0); %Lymphocytes 8.3 % (21.0-51.0); %Monocytes 7.3 % (0.0-10.0); Hematocrit 35.9 % (42.0-52.0); Mean Platelet Volume 7.6 fL (7.4-10.4); White Blood Cell (WBC) Count 16.6 thou/uL (4.8-10.8)
[2017-05-18 20:13] LABS: ALT (SGPT) 33 U/L (8-55); AST (SGOT) 17 U/L (5-34); Alkaline Phosphatase 125 U/L (40-150); Anion Gap 12 mmol/L (10-20); BUN (Urea Nitrogen) 21 mg/dL (8.4-25.7); Calc. Creatinine Clearance 0 mL/min (70-130); Calcium 8.7 mg/dL (7.8-10.44); Carbon Dioxide 22 mmol/L (23-31); Chloride 102 mmol/L (98-107); Estimated GFR-MDRD 49; Globulin 3.3 g/dL (2.4-3.5); Protein, Total 6.8 g/dL (5.8-8.1)
--- NOTE | 2017-05-18 20:30 | RAD ---
CHEST ONE VIEW: History: Emergency exam. Comparison: CTA chest 05-10-17 FINDINGS: In the right lung base is a peripheral opacity which can be seen on the prior CT examination and may reflect underlying hemorrhage from embolism. The same is true in the lingula. Cardiac silhouette and mediastinal contours are within normal limits. Surgical clips in the abdomen. IMPRESSION: Peripheral triangular shaped opacity in the right lower lobe, likely sequellae of underlying hemorrha ge with infarction. POS: KILEYH
[2017-05-18] MEDS ORDERED: Acetaminophen 500 MG TAB ONE (21:37)
[2017-05-18 21:39] LABS: Bilirubin Small (Negative); Blood, Urine Large (Negative); Glucose, Urine (Dipstick) 500 mg/dL (Negative); Ketone, Urine Trace mg/dL (Negative); Nitrite Negative (Negative); Protein, Urine (Dipstick) > or equal to 300 mg/dL (Neg-Trace); Urobilinogen 0.2 mg/dL (0.2-1.0)
[2017-05-18 21:41] LABS: Bacteria/HPF None Seen HPF (None Seen); Hyaline Casts/LPF 0-3 HYALINE CAST LPF (0-3 Hyaline); RBC/HPF GREATER THAN 50-TNTC HPF (0-3); Squamous Epithelial 0-3 HPF (0-3); WBC/HPF 0-3 HPF (0-3)
[2017-05-18] MEDS ORDERED: Morphine 4 MG/ML VIAL ONE (21:57)
[2017-05-18] MEDS ORDERED: Ondansetron HCl/PF 4 MG/2 ML Vial ONE (21:57)
[2017-05-18] MEDS ORDERED: Enoxaparin Sodium 80 MG/0.8 ML SYRINGE ONE (21:57)
[2017-05-18] MEDS ORDERED: Piperacillin/Tazobactam 3.375 GM in Sodium Chloride 0.9% 100 ML IVPB SCH (22:15)
[2017-05-18] MEDS ORDERED: Acetaminophen 325 MG TAB PO PRN (23:25)
[2017-05-18] MEDS ORDERED: Ondansetron HCl/PF 4 MG/2 ML Vial IVP PRN (23:25)
[2017-05-18] MEDS ORDERED: Morphine 4 MG/ML VIAL SLOW IVP PRN (23:25)
[2017-05-18] MEDS ORDERED: Ondansetron ODT 4 MG TAB SL PRN (23:25)
[2017-05-18] MEDS: Sodium Chloride 0.9% 1,000 ML IV SCH (23:45)
[2017-05-19 00:17] VITALS: BMI 21.8
[2017-05-19 02:07] LABS: Lactic Acid - Sepsis 0.6 mmol/L (0.5-2.2)
[2017-05-19] MEDS: Sodium Chloride 0.9% 1,000 ML IV SCH (07:21)
[2017-05-19] MEDS ORDERED: Morphine 4 MG/ML Carpuject SLOW IVP PRN (08:23)
[2017-05-19] MEDS ORDERED: Enoxaparin Sodium 80 MG/0.8 ML SYRINGE SC SCH ×2 (09:00→22:15)
--- NOTE | 2017-05-19 09:24 | HP ---
HISTORY OF PRESENT ILLNESS: This is a 66-year-old white male with a history of metastatic renal cell carcinoma, status post right nephrectomy with resultant pulmonary embolism and gross hematuria. The patient presents with fever. The patient initially was diagnosed with renal cell carcinoma in 03/11 17. He has been followed by Dr. Marroquin and Dr. Montalvo. He underwent a right nephrectomy 7. Surgery was complicated by tumor involving the renal vein as well as the vena cava. A thrombotic lesion did migrate to the lungs requiring ECMO therapy. He continued to be postoperatively and had the thrombosis removed from the pulmonary arteries. He was then started on Lovenox and Coumadin. He was then discharged with a wound VAC. On 05/10/2017 he was then admitted to the hospital with worse patricio hematuria. The Coumadin was then stopped and the Lovenox was continued. The patient continued to have some hematuria. He was stable and was discharged on 05/13/2017. 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 He was also seen by Dr. Montalvo and a white count was noted to be 11. The patient continued to have a low grade fever. He did not have any cough, congestion, chest pain, shortness of breath, niels sea or vomiting. He was then instructed to go to the emergency room for further evaluation. Once ev aluated, he was noted to have a temperature of 103 with a white count of 16,000 and was admitted for further treatment. MEDICATIONS: 1. Lovenox 70 q.12h. 2. [place] p.r.n. 3. Pravastatin 20. 4. Prilosec 10 every day. 5. Norvasc 10 mg p.r.n. PAST MEDICAL HISTORY: Recurrent multiple facial basal cell carcinomas, stage 3 renal cell carcinoma, hypertension, pulmonary embolism, nephrolithiasis, hypertension, low back pain, hematuria. PAST SURGICAL HISTORY: Include hernia repair, right nephrectomy in 03/2017, multiple skin cancer rem ovals. FAMILY HISTORY: Father with lung cancer. Mother with liver and heart diseas e. Siblings with schizophrenia and a sister with breast cancer. SOCIAL HISTORY: The patient quit tobacco in 1982 after a 12-year history of 1 pack per day. 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 He is . He has several children. REVIEW OF SYSTEMS: As above. PHYSICAL EXAMINATION: VITAL SIGNS: Temperature 99.5, pulse 76, respirations 16, pulse ox 97, blood pressure 120/77. GENERAL: At this time, the patient is in no acute distress. He looks fairly well. HEENT: Clear. HEART: Regular rate and rhythm. LUNGS: Relatively clear. ABDOMEN: Soft, nontender. Abdominal wound is intact. EXTREMITIES: With no edema. LABORATORY AND X-RAY FINDINGS: White count 16.6, H&H 11 and 35, platelet 247. Sodium 132, potassium 4.3, creatinine 1.44, BUN 21, glucose 160. Urine with TNTC red blood cells. Stat chest x-ray with area of pulmonary infarction. ASSESSMENT: 1. Sepsis/fever etiology unknown. Cultures are pending. He was started on Zosyn and vancomycin in the emergency room. 2. Pulmonary infarction area on chest x-ray. 3. Gross hematuria. 4. Status post right nephrectomy with emboli. 5. Metastatic renal cell carcinoma. 6. Chronic kidney disease stage 3. 7. Pulmonary emboli. 8. Hypertension. 9. Hyperlipidemia. 10. Nephrolithiasis. PLAN: 1. Unsure the etiology of the fever. Possibilities may include early pneumonia. I am not sure if a pulmonary infarction can cause such a high fever of 103. 2. Continue antibiotics. 3. Consult Dr. Redman and Dr. Marroquin. 4. Wound care. 5. Incentive spirometry. 6. Continue Lovenox 70 b.i.d. 7. Recheck CBC, comp and UA. 8. Morphine for pain. 9. We will continue Zosyn and vancomycin for right now.
[2017-05-19] MEDS: Vancomycin HCl 750 MG, Admixture Fee 1 EACH in Sodium Chloride 0.9% 250 ML 250 ML IVPB SCH (10:02)
[2017-05-19] MEDS: HYDROcodone/Acetaminophen 7.5/325 mg Tablet PO PRN ×2 (10:02→14:58)
[2017-05-19] MEDS: Famotidine 20 MG TAB PO SCH ×2 (10:03→21:27)
[2017-05-19] MEDS: Piperacillin/Tazobactam 3.375 GM, Admixture Fee 1 EACH in Sodium Chloride 0.9% 100 ML IVPB SCH ×3 (12:24→23:44)
[2017-05-19] MEDS ORDERED: Docusate 100 MG CAP PO SCH ×2 (13:00→21:00)
[2017-05-19] MEDS ORDERED: Polyethylene Glycol 3350 17 GM Packet PO SCH (13:00)
[2017-05-19] MEDS ORDERED: Acetaminophen 325 MG TAB PO PRN (15:20)
--- NOTE | 2017-05-19 16:29 | CON ---
DATE OF CONSULTATION: 05/19/2017 REASON FOR CONSULTATION: Renal cell carcinoma. HISTORY OF PRESENT ILLNESS: Mr. Mora is a pleasant 66-year-old gentleman who had a right nephrectomy in March for renal cell carcinoma. It was complicated by tumor emboli to the lungs requiring transarterial embolectomy. He has a wound VAC in place secondary to wound healing problems. He was seen by Dr. Montalvo yesterday. He was recovering slowly but had a good appetite with no shortness of breath. Last evening, he began to feel poorly and developed a fever of 101 and was instructed to go to the emergency room for evaluation. In the emergency room, his temperature was noted to be 103. His white count was elevated at 16.6. He was admitted for possible sepsis. He has been started on vancomycin and Zosyn. Chest x-ray showed a pulmonary infarction with possible underlying hemorrhage. The patient denies any chest pain or shortness of breath. No congestion, sore throat, or earache. He has no abdominal pain. He continues to have gross hematuria. PAST MEDICAL HISTORY: 1. Stage 3 renal cell carcinoma. 2. Pulmonary infarct with tumor emboli. 3. Hypertension. 4. Hyperlipidemia. 5. Kidney stones. 6. Hemorrhoids. 7. Multiple skin cancers. PAST SURGICAL HISTORY: 1. Right nephrectomy. 2. Hemorrhoidectomy. 3. Skin cancer excisions. 4. Transarterial tumor embolectomy. ALLERGIES: No known drug allergies. HOME MEDICATIONS: 1. Lovenox 70 mg subcu b.i.d. 2. [place] 10/325 p.r.n. 3. Pravastatin 20 mg daily. FAMILY HISTORY: His mother had liver cancer, father had lung cancer, sister had breast cancer. SOCIAL HISTORY: , has 2 children, lives with his spouse. Former smoker. No alcohol or illicit drug use. REVIEW OF SYSTEMS: Twelve-point review of systems is negative except for noted in HPI. PHYSICAL EXAMINATION: VITAL SIGNS: Temperature is 99.5, pulse is 78, respiratory rate 18, BP is 96/ 58. He is 96% on room air. GENERAL: Well-developed, well-nourished male in no acute distress. HEENT: Normocephalic, atraumatic. Pupils equal and reactive to light. NECK: Supple. CARDIOVASCULAR: Regular rate and rhythm. LUNGS: Have rales and diminished in the right upper lobe. ABDOMEN: Soft, nontender, bowel sounds are positive, wound VAC midline. EXTREMITIES: No clubbing, cyanosis or edema. SKIN: No rash. HEMATOLOGICAL: Positive for hematuria. NEUROLOGIC: Nonfocal. PSYCHIATRIC: The patient is alert and oriented and appropriate. PERTINENT LABORATORY AND X-RAYS: Current WBCs are 16.6, hemoglobin 10.8, hematocrit 35.9, platelet count is 247,000, neutrophils 85%, and 8% lymphocytes. Sodium 132, potassium 4.3, chloride 102, CO2 is 22, BUN is 21, creatinine 1.44. Lactic acid is 0.6, calcium 8.7, total bilirubin is 1.0, AST 17, ALT 33, alkaline phosphatase is 125. Serum total protein 6.8, albumin 3.5, globulin 3.3. Urine showed no bacteria, positive for blood. Radiology per HPI. ASSESSMENT: 1. Febrile illness. 2. Pulmonary infarct with tumor emboli, now on Lovenox. 3. Hematuria. 4. Renal cell carcinoma. DISCUSSION: The patient has been pancultured and started on antibiotics and IV fluids. He will not be treated with chemotherapy at this time. The plan is to allow the patient time to recover from his surgery and reevaluate in 06/2017. Continue anticoagulation. We will follow his hospital course remotely. Please call if any assistance as needed. ROCIO
[2017-05-19] MEDS: Morphine 4 MG/ML VIAL IV PRN (19:49)
[2017-05-19] MEDS ORDERED: VANCOMYCIN IVPB PRN (20:32)
[2017-05-20 01:21] LABS: Bilirubin Negative (Negative); Blood, Urine Large (Negative); Glucose, Urine (Dipstick) Negative (Negative); Ketone, Urine Negative (Negative); Nitrite Negative (Negative); Protein, Urine (Dipstick) 30 mg/dL (Neg-Trace); Urobilinogen 0.2 mg/dL (0.2-1.0)
[2017-05-20 01:28] LABS: RBC/HPF GREATER THAN 50-TNTC HPF (0-3); Renal Epithelial None Seen HPF (0-3); Squamous Epithelial 0-3 HPF (0-3); Transitional Epithelial NONE SEEN HPF (0-3)
[2017-05-20 01:29] LABS: Bacteria/HPF 1+ HPF (None Seen); Hyaline Casts/LPF NONE SEEN LPF (0-3 Hyaline); Yeast-All Forms None Seen HPF (None Seen)
[2017-05-20] MEDS: Morphine 4 MG/ML VIAL IV PRN ×2 (01:55→21:24)
--- NOTE | 2017-05-20 03:15 | CON ---
DATE OF CONSULTATION: 05/19/2017 SERVICE: Pulmonary medicine. REASON FOR CONSULTATION: Pulmonary embolism. HISTORY OF PRESENT ILLNESS: The patient is a pleasant 66-year-old white male with past medical histo ry significant for renal cell carcinoma. 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 He had a nephrectomy, and a debulking of the inferior vena cava tumor. During that procedure, a piece o f clot broke off and went down into the lungs. Later on, he had to go back to the OR because of exce ssive bleeding. He was subsequently put on ECMO. Because of his high oxygen requirements and stress in the heart, he underwent a pulmonary artery thrombectomy. Pathology on that thrombectomy was cons istent mostly with clot. There is a little bit of tumor cells mixed into the clot. Either way, he h as been slowly recovering from this event 1 month ago. Since then, he has been back into the hospita with gross hematuria, and subsequently will have to go back to the hospital and has returned to the hospital this time because of a fever. He currently denies any cough, shortness of breath, sputum p roduction, nausea, vomiting, diarrhea. He is essentially returning to his usual state of health. Ot her than fever and weakness, he did not really have any focalizing symptoms beyond his hematuria, nikole wright has been present for a period of time now. PAST MEDICAL HISTORY: 1. Renal cell carcinoma, extensive. 2. Recent history of pulmonary embolism. 3. Pulmonary hypertension, recent. 4. Hypertension. 5. History of nephrolithiasis. 6. History of basal-cell carcinoma, excised from face. 7. Chronic low back pain. 8. Hematuria. PAST SURGICAL HISTORY: 1. Herniorrhaphy. 2. Right nephrectomy with subsequent washout, placement on ECMO and decannulation 2 days later. 3. Pulmonary artery thrombectomy. 4. Skin cancer excisions, multiple. FAMILY HISTORY: Noncontributory. SOCIAL HISTORY: Negative for current alcohol, tobacco, or illicit drug use. He has a [id number] h istory of smoking. 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 He is and has several children. ALLERGIES: No known drug allergies. MEDICATIONS LIST: List of his inpatient medications were reviewed. No specific updates were made at this time. PHYSICAL EXAMINATION: VITAL SIGNS: Currently, afebrile at 99.2. His T-max was 103 on presentation, but since being in the hospital, his fever profile has improved. Pulse 74, blood pressure 101/60, respirations 16, saturat ion 98% on room air. GENERAL: The patient is awake and alert, in no apparent distress. LUNGS: Excellent air entry with no prolonged expiratory phase, wheezing, rhonchi, or crackles. HEART: Normal rate, regular. ABDOMEN: Soft, nontender, nondistended. Bowel sounds are positive. MUSCULOSKELETAL: No cyanosis or clubbing. There is no pitting in the bilateral lower extremities. NEUROLOGIC: Grossly nonfocal. LABORATORY DATA: WBC 16.6, hemoglobin 11.8, platelets 247,000, with 84% neutrophils. Basic metaboli c profile is essentially unremarkable. Creatinine 1.44. Lactate is 0.6 and has improved. Urinalysi s is positive for proteinuria, glycosuria, ketones, and large amounts of blood, but negative nitrites , and leukocyte esterase. Blood cultures x2 are unremarkable. IMAGIN. Recent CT of the chest demonstrates extensive pulmonary emboli throughout bilateral lungs, but th e larger burden is on the right side. 2. Ultrasound of bilateral lower extremity demonstrates no evidence of a DVT. 3. CT of abdomen and pelvis from 05/12/2017 demonstrates status post nephrectomy status with some po stsurgical fluid in the renal fossa, but no obvious abscesses present. 4. Chest x-ray demonstrates multifocal infiltrates that likely sales representative womens health of his pulmonary infar ctions that were previously identified on CT scan. ASSESSMENT: 1. Subacute pulmonary embolism. 2. Pulmonary hypertension, in the setting of acute pulmonary embolism. 3. Renal-cell carcinoma, status post nephrectomy and debulking of the inferior vena cava. 4. Hematuria. 5. Chronic kidney disease. 6. Sepsis. PLAN: I do not think that his fevers are coming from the pulmonary infarctions. If this were the ca se, they should have presented a couple of weeks ago. I am suspicious that we are dealing with an ac [place] infectious process. I agree with the blood cultures. I know the urinalysis really was not too t erribly remarkable so far as infection goes, but I am going to go ahead and send a urinalysis anyway. Chest x-ray was consistent with multifocal areas of pulmonary infarction, though an infiltrate or i nfection cannot be excluded. If we do not find something else to treat, limit his antibiotics to a t otal duration of 7 days, particularly if he makes a clinical improvement. If he has recrudescence of symptoms in the future, repeat CT of the abdomen and pelvis should be considered looking for complic ations associated with this surgical procedures. A month ago, he had horrendous pulmonary hypertensi on and they were in fear of his heart failing him. For peace of mind, the patient and his had a sked me to repeat ultrasound of his heart to make certain that this pulmonary hypertension is clearin g. We will also do a BNP and troponin to make certain that he is not under any significant stress th ere. Agree with anticoagulation. He should be continued on lifelong anticoagulation as long as tole rates it. Pulmonary will continue to follow while he remains in-house.
[2017-05-20] MEDS: Piperacillin/Tazobactam 3.375 GM, Admixture Fee 1 EACH in Sodium Chloride 0.9% 100 ML IVPB SCH ×4 (06:00→23:22)
[2017-05-20] MEDS: HYDROcodone/Acetaminophen 7.5/325 mg Tablet PO PRN ×2 (08:02→14:53)
[2017-05-20] MEDS: Bumetanide 1 MG TAB PO SCH (08:03)
[2017-05-20] MEDS: Multivit, Therapeutic 1 TAB PO SCH (08:04)
[2017-05-20] MEDS: Enoxaparin Sodium 80 MG/0.8 ML SYRINGE SC SCH ×2 (08:04→21:15)
[2017-05-20] MEDS: Famotidine 20 MG TAB PO SCH (08:04)
--- NOTE | 2017-05-20 08:20 | PRG ---
DATE OF SERVICE: 05/20/2017 SUBJECTIVE: The patient is doing well. Ambulating in the halls. No complaints of any chest pain, n ausea, vomiting, shortness of breath. He does have loose stools. OBJECTIVE: VITAL SIGNS: Temperature 99.6, pulse 70, respirations 16, pulse ox 97, blood pressure 101/61. HEART: Regular rate and rhythm. LUNGS: Clear. ABDOMEN: Soft. EXTREMITIES: With no edema. LABORATORY DATA: Labs pending this morning. ASSESSMENT: 1. Fever, rule out sepsis. Culture is pending, negative thus far. On Zosyn and vancomycin. 2. Pulmonary infarction. 3. Gross hematuria, improved today. Status post right nephrectomy with emboli. 4. Metastatic renal cell carcinoma. 5. Chronic kidney disease, stage 3. 6. Pulmonary emboli. 7. Hypertension. 8. Hyperlipidemia. 9. Nephrolithiasis. PLAN: 1. Continue to ambulate. 2. Continue to receive wound care to the abdominal incisions. 3. Check CBC and BMP this a.m. 4. Appreciate Dr. Roberts and SMOKING PIPES CLEANER, Juan M. 5. Hold Colace and MiraLax.
[2017-05-20 08:30] LABS: #Eosinphils 0.2 thou/uL (0.0-0.7); #Lymphocytes 1.6 thou/uL (1.20-3.40); #Neutrophils 7.7 thou/uL (1.40-6.50); %Basophils 0.3 % (0.0-1.0); %Eosinophils 2.3 % (0.0-10.0); %Monocytes 9.3 % (0.0-10.0); Hematocrit 33.2 % (42.0-52.0); Mean Platelet Volume 7.6 fL (7.4-10.4); Red Blood Cell (RBC) Count 3.45 mill/uL (4.70-6.10); White Blood Cell (WBC) Count 10.5 thou/uL (4.8-10.8)
[2017-05-20 08:36] LABS: Vancomycin, Trough 7.9 ug/mL
[2017-05-20 08:41] LABS: ALT (SGPT) 27 U/L (8-55); AST (SGOT) 15 U/L (5-34); Alkaline Phosphatase 104 U/L (40-150); Anion Gap 12 mmol/L (10-20); BUN (Urea Nitrogen) 13 mg/dL (8.4-25.7); Bilirubin, Total 0.9 mg/dL (0.2-1.2); Calc. Creatinine Clearance 48 mL/min (70-130); Calcium 8.5 mg/dL (7.8-10.44); Carbon Dioxide 19 mmol/L (23-31); Chloride 110 mmol/L (98-107); Estimated GFR-MDRD 48; Protein, Total 6.1 g/dL (5.8-8.1)
[2017-05-20 08:44] LABS: Troponin I 0.013 ng/mL (< 0.028)
[2017-05-20] MEDS ORDERED: Polyethylene Glycol 3350 17 GM Packet PO SCH (09:00)
[2017-05-20] MEDS: Vancomycin HCl 1.25 GM in Sodium Chloride 0.9% 250 ML 250 ML IVPB SCH (09:59)
[2017-05-20] MEDS: Lidocaine 4% Topical Sol 50 ML BOT FS SCH (10:05)
[2017-05-20] MEDS: Vancomycin HCl 750 MG, Admixture Fee 1 EACH in Sodium Chloride 0.9% 250 ML 250 ML IVPB SCH (11:11)
[2017-05-20] MEDS ORDERED: Loperamide HCl 2 MG CAP PO SCH (19:45)
--- NOTE | 2017-05-20 20:10 | PRG ---
DATE OF SERVICE: 05/20/2017 SERVICE: Pulmonary Medicine. INTERVAL HISTORY: The patient is doing fine from a respiratory standpoint. Strength is improving. He has increasing swelling in the right groin pain at that location. He is developing a little bit o f fluctuant lesion there. He denies any current fevers, chills, nausea or vomiting. There are no ot her overnight events. He is having a little bit of loose stool. He may need some Imodium at some po int in the near future. PHYSICAL EXAMINATION: VITAL SIGNS: Afebrile, pulse 77, blood pressure 119/74, respirations 20 and saturation 99% on room a ir. GENERAL: Patient is awake and alert, in no apparent distress. LUNGS: Excellent air entry. No prolonged expiratory phase, wheezing or crackles. HEART: Normal rate, regular. ABDOMEN: Soft, nontender and nondistended. Bowel sounds are positive. MUSCULOSKELETAL: No cyanosis or clubbing. No pitting in the bilateral lower extremities. NEUROLOGIC: Grossly nonfocal. The right fluctuant groin lesion has increased swelling and is exquis itely tender to palpation. There is no erythema, but there is heat over that location. LABORATORY DATA: WBC 10.5, hemoglobin 10.7 and platelets 185,000. Basic metabolic profile, liver fu nction studies are unremarkable. BNP 212 and troponin 0.013. Repeat urinalysis demonstrated no sign ificant red blood cells, but they were quite a few white blood cells. Nitrites and leukocyte esteras e were otherwise unremarkable. Blood cultures x2 and urine culture are negative to date. ASSESSMENT: 1. Subacute pulmonary embolism. 2. Pulmonary hypertension, likely improved dramatically. 3. Renal cell carcinoma, status post nephrectomy and debulking of the inferior vena cava. 4. Hematuria, resolved. 5. Chronic kidney disease. 6. Sepsis. 7. Right groin inflammation. PLAN: We will get an ultrasound of the right groin lesion. I will provide him with Imodium to be us ed on a p.r.n. basis. My suspicion is that we are not developing with a true pneumonia. That being said, if we do not find another source, we can likely limit antibiotics for a total duration of 7 day s. If there is a fluid collection at the right groin, this will need to be sampled.
--- NOTE | 2017-05-20 21:12 | ULT ---
ULTRASOUND EXTREMITY NONVASCULAR COMPLETE 05/20/17 HISTORY: Fluid collection. Abscess. COMPARISON: CT from 05/12/17. FINDINGS: Superficial to the femoral artery and vein is a complete collection measuring 5.2 x 2.3 x 2.5 cm. No direct connection with the vasculature is present. There is flow within the common femoral artery and vein. There appears to be a incision site extending to the skin. IMPRESSION: Complex collection in the groin concerning for an abscess versus complicated seroma. POS: KILEYH
[2017-05-21] MEDS: Morphine 4 MG/ML VIAL IV PRN ×2 (03:26→21:07)
[2017-05-21] MEDS: Piperacillin/Tazobactam 3.375 GM, Admixture Fee 1 EACH in Sodium Chloride 0.9% 100 ML IVPB SCH ×3 (05:52→17:55)
[2017-05-21] MEDS: Famotidine 20 MG TAB PO SCH (08:17)
[2017-05-21] MEDS: Multivit, Therapeutic 1 TAB PO SCH (08:18)
[2017-05-21] MEDS: Bumetanide 1 MG TAB PO SCH (08:18)
[2017-05-21] MEDS: Enoxaparin Sodium 80 MG/0.8 ML SYRINGE SC SCH (08:18)
--- NOTE | 2017-05-21 08:40 | PRG ---
DATE OF SERVICE: 05/21/2017 SUBJECTIVE: The patient is complaining of increasing soreness and tenderness of the right groin. St ates that the area has become more enlarged and tender. No other complaints of any chest pain, short ness breath, nausea or vomiting. OBJECTIVE: VITAL SIGNS: Temperature 98.3, pulse 68, respirations 16, pulse ox 98, blood pressure 111/75. HEART: Regular rate and rhythm. LUNGS: Clear. ABDOMEN: Soft, nontender. EXTREMITIES: With no edema. Right groin area with a 5 x 4 cm hematoma versus abscess, tender, sligh tly warm, enlarging according to the patient. LABORATORY: None. ASSESSMENT: 1. Right groin hematoma versus abscess. This is an area of concern. It may have been his original issue. Plan to consult General Surgery. May need to be opened. 2. Fever, rule out sepsis, possibly secondary to #1. 3. Pulmonary infarction. 4. Pulmonary embolism. 5. Gross hematuria. 6. Metastatic renal cell carcinoma. 7. Chronic kidney disease stage 3. 8. Hypertension. 9. Hyperlipidemia. 10. Nephrolithiasis. PLAN: 1. Consult General Surgery to evaluate. May have to open up the right groin area to rule out absces s. 2. Continue antibiotics. 3. Consider the use of Eliquis versus Lovenox. Will asked Dr. Roberts. Will check on the metabolis m of the low molecular weight anticoagulants. We need to utilize the one that is not metabolize by t he kidney.
[2017-05-21] MEDS: Loperamide HCl 2 MG CAP PO PRN ×2 (10:04→17:56)
[2017-05-21] MEDS: Vancomycin HCl 1.25 GM in Sodium Chloride 0.9% 250 ML 250 ML IVPB SCH (10:07)
[2017-05-21] MEDS: HYDROcodone/Acetaminophen 7.5/325 mg Tablet PO PRN (12:17)
--- NOTE | 2017-05-21 20:42 | CON ---
DATE OF CONSULTATION: 05/21/2017 CHIEF COMPLAINT: Painful mass, right groin. HISTORY OF PRESENT ILLNESS: This is a 66-year-old male who has been diagnosed with metastatic renal cell carcinoma. He underwent a right nephrectomy in 04/20/2017 and at the time of surgery, he was fo und to have tumor in the vena cava. Postoperatively, he developed a pulmonary embolus with thrombose d to his lung. He had to undergo ECMO for treatment of that and they used his right groin as access. He was discharged just 8 days ago. He has developed a progressive painful inflammatory fluid colle ction in the right groin. PAST MEDICAL HISTORY: Significant for Stage III renal cell carcinoma, hypertension, history of PE, n ephrotic syndrome. PAST SURGICAL HISTORY: Right inguinal hernia repair, right nephrectomy, skin cancer surgery. MEDICATIONS: Lovenox, [place], pravastatin, Prilosec, Norvasc. 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 No tobacco, rare alcohol. PHYSICAL EXAMINATION: VITAL SIGNS: Temperature 98.3, pulse 68, blood pressure 111/75. GENERAL: Well-developed, well-nourished male, in no apparent distress. HEENT: Unremarkable. LUNGS: Clear. HEART: Regular rate and rhythm. ABDOMEN: He has a healing incision on his right subcostal. He has a swollen, tender, erythematous f luctuant mass in the right groin, it is approximately 6 cm in diameter. Ultrasound shows complex col lection in groin consistent with abscess. LABORATORY AND X-RAY FINDINGS: His white count 10.5, H and H 10 and 33, platelet count 185. Electro lytes are fine. ASSESSMENT: Right groin abscess. PLAN: Incision and drainage with irrigation. We will hold Lovenox tonight.
--- NOTE | 2017-05-21 22:29 | PRG ---
DATE OF SERVICE: 05/21/2017 SERVICE: Pulmonary Medicine. INTERVAL HISTORY: Patient is doing really well from a respiratory standpoint. He has no specific co mplaints of nausea, vomiting, or diarrhea. Otherwise, he is returning to his usual state of health. His strength is improving. Whenever he gets the pain and spasm; however, he needs to be stable. Th erefore, he moves around very cautiously. PHYSICAL EXAMINATION: VITAL SIGNS: Afebrile, pulse 72, blood pressure 113/72, respirations 17, saturation 98% on room air. GENERAL: Patient is awake, alert, in no apparent distress. LUNGS: Excellent air entry. I do not appreciate prolonged expiratory phase, wheezing, rhonchi or cr ackles. HEART: Normal rate, regular. ABDOMEN: Soft, nontender, nondistended. Bowel sounds positive. MUSCULOSKELETAL: No cyanosis or clubbing. No pitting in the bilateral lower extremities. NEUROLOGIC: Grossly nonfocal. IMAGIN. Ultrasound of the right groin demonstrates a 5.2 x 2.5 x 2.3 cm loculated collection of fluid. T his is completely separate from the common femoral artery and vein. There is incision site extending to the skin. 2. The echocardiogram demonstrates no evidence of pulmonary hypertension with a normal RVSP. There is mild to moderate pulmonic regurgitation with no significant tricuspid disease. ASSESSMENT: 1. Subacute pulmonary embolism. 2. Pulmonary hypertension, resolved. 3. Renal cell carcinoma, status post nephrectomy and debulking of the inferior vena cava. 4. Hematuria, resolved. 5. Chronic kidney disease. 6. Sepsis. 7. Likely abscess over the right groin which was his previous ECMO catheter insertion site. PLAN: General Surgery has already been consulted. He is going to go down to the OR for exploration of this lesion tomorrow morning. Hopefully, we drain purulent material. If that is the case, cultur es can be sent. We can direct our antibiotics moving forward at whatever organism we identified. Hi s pulmonary hypertension is completely resolved and no additional studies need to investigate this th ing. The infiltrates that we see on the chest x-ray and CT scan are almost certainly non-infectious and most likely represent infarctions from his extensive pulmonary embolisms. That being said, repea t imaging is still warranted in 2-3 months in the future to make certain that the infiltrates go away . Pulmonary will continue to follow while the patient remains in-house.
[2017-05-22] MEDS: Enoxaparin Sodium 80 MG/0.8 ML SYRINGE SC SCH ×3 (00:15→21:21)
[2017-05-22] MEDS: Piperacillin/Tazobactam 3.375 GM, Admixture Fee 1 EACH in Sodium Chloride 0.9% 100 ML IVPB SCH ×5 (00:26→23:08)
[2017-05-22] MEDS: Morphine 4 MG/ML VIAL IV PRN ×2 (01:29→10:54)
[2017-05-22] MEDS ORDERED: Fentanyl 100 MCG/2 ML VIAL ONE (08:46)
[2017-05-22] MEDS: Famotidine 20 MG TAB PO SCH (10:58)
[2017-05-22] MEDS: Bumetanide 1 MG TAB PO SCH (10:59)
[2017-05-22] MEDS: Multivit, Therapeutic 1 TAB PO SCH (10:59)
[2017-05-22 11:18] LABS: Hematocrit 31.6 % (42.0-52.0)
[2017-05-22 11:38] LABS: Vancomycin, Trough 10.8 ug/mL
[2017-05-22] MEDS: Vancomycin HCl 1.75 GM in Sodium Chloride 0.9% 500 ML IVPB SCH (12:37)
[2017-05-22] MEDS: Lidocaine 4% Topical Sol 50 ML BOT FS SCH (12:51)
--- NOTE | 2017-05-22 13:29 | OP ---
PREOPERATIVE DIAGNOSIS: Right groin abscess. SURGEON: Aguila Cardona M.D. PROCEDURE PERFORMED: Incision and drainage of right groin abscess. INDICATIONS: This is a 66-year-old male who had begun ECMO, had a wound in his right groin for acces s to vessels. He developed progressive erythema, swelling, and an ultrasound showing a complex fluid collection consistent with abscess. FINDINGS: Thick purulent fluid approximately 100 mL with a deep extension medially. PROCEDURE IN DETAIL: After informed consent was obtained, the patient was taken to the operating yovani m and given general anesthesia, placed in the supine position. His groin area was prepped and draped in the usual fashion. A longitudinal incision through the old scar was performed with release of th ick purulent white fluid. This was sent for culture. The abscess cavity was further unroofed and th en irrigated with a pulse microscopist. Hemostasis achieved with electrocautery. I did not see any aliyah dence of mesh involvement or involvement of the vessels. The wound was then dressed with a wound VAC by the wound care team and sent to recovery in good condition.
--- NOTE | 2017-05-22 13:52 | PRG ---
DATE OF SERVICE: 05/22/2017 The patient is seen at 8:00 a.m. SUBJECTIVE: The patient's right groin area this morning has become more swollen and tender according to the patient. OBJECTIVE: VITAL SIGNS: Temperature 98.6, pulse 79, respirations 16, pulse ox 97, blood pressure 102/57. HEART: Regular rate and rhythm. LUNGS: Clear. ABDOMEN: Soft. Right groin area with increased swelling, increased erythema, increased tenderness. LABORATORY: H&H 10 and 31, creatinine 1.45. ASSESSMENT: 1. Right groin abscess, to go to surgery this a.m. by Dr. Cardona. 2. Fever, possibly secondary to #1. 3. Pulmonary infarction. 4. Pulmonary embolism, status post thrombectomy. 5. Gross hematuria. 6. Metastatic renal cell carcinoma, status post nephrectomy. 7. Chronic kidney disease stage 3. 8. Hypertension. 9. Hyperlipidemia. 10. Nephrolithiasis. PLAN: 1. The patient was taken to the operating room. 100 mL of purulent material was removed by Dr. Meek murcia. A wound VAC was placed. Cultures were obtained. 2. Continue present antibiotics. 3. We will continue to follow the patient. 4. Consider use of low molecular weight heparin.
[2017-05-22] MEDS: Vancomycin HCl 1.25 GM in Sodium Chloride 0.9% 250 ML 250 ML IVPB SCH (14:05)
[2017-05-22] MEDS ORDERED: Lidocaine 1% PF 5 ML VIAL ONE (15:23)
[2017-05-22] MEDS ORDERED: PHENYLEPHRINE-NS 100 MCG/ML 10 ML SYRINGE ONE (15:23)
[2017-05-22] MEDS ORDERED: Ondansetron HCl/PF 4 MG/2 ML Vial ONE (15:23)
[2017-05-22] MEDS ORDERED: ePHEDrine/0.9% NaCl/PF SYRINGE 50 mg/10 ml ONE (15:23)
[2017-05-22] MEDS ORDERED: Propofol 200 MG/20 ML VIAL ONE (15:23)
[2017-05-22] MEDS ORDERED: Dexamethasone 20 MG/5 ML VIAL ONE (15:23)
[2017-05-22] MEDS: HYDROcodone/Acetaminophen 7.5/325 mg Tablet PO PRN ×2 (16:37→22:41)
--- NOTE | 2017-05-22 16:53 | PRG ---
DATE OF SERVICE: 05/22/2017 SERVICE: Pulmonary Medicine. INTERVAL HISTORY: The patient is doing fine from a respiratory standpoint. He denies any nausea, vomiting or diarrhea. He is recovering fine from his bedside operation. He denies any current fevers, chills, nausea, vomiting or shortness of breath. There was a significant amount of purulent fluid that drained from the site. PHYSICAL EXAMINATION: VITAL SIGNS: Afebrile, pulse 72, blood pressure 94/60, respirations 16, saturation 97% on room air. GENERAL: Patient is awake and alert, in no apparent distress. LUNGS: Excellent air entry. No prolonged expiratory phase, wheezing or crackles are present. HEART: Normal rate, regular. ABDOMEN: Soft, nontender, nondistended. Bowel sounds positive. MUSCULOSKELETAL: No cyanosis or clubbing. No pitting in the bilateral lower extremities. NEUROLOGIC: Grossly nonfocal. LABORATORY DATA: Hemoglobin 10.3. Creatinine 1.45 and roughly stable. MICROBIOLOGY: Includes 2 blood cultures that are negative to date and urine culture that is also unremarkable. The wound culture is currently pending. It was sent for routine bacteria and anaerobic cultures. ASSESSMENT: 1. Subacute pulmonary embolism. 2. Pulmonary hypertension, resolved. 3. Renal cell carcinoma, status post nephrectomy and debulking of the inferior vena cava requiring placement of extracorporeal membrane oxygenation, removed 1 month ago. 4. Abscess at the extracorporeal membrane oxygenation right groin site . 5. Chronic kidney disease. 6. Hematuria, resolved. 7. Sepsis, resolving. PLAN: This was almost certainly the source. I do not believe that any antibiotics directed at lung pathology are required. The only thing we need to be treating at this point is a soft tissue infection. We will continue to follow for now. A repeat CXR should be done in the outpatient setting in 6 weeks. ROCIO
[2017-05-22] MEDS ORDERED: Sodium Chloride 0.45% 1,000 ML IV SCH ×2 (21:15→22:45)
[2017-05-23] MEDS: Piperacillin/Tazobactam 3.375 GM, Admixture Fee 1 EACH in Sodium Chloride 0.9% 100 ML IVPB SCH ×3 (06:23→18:40)
[2017-05-23] MEDS: Morphine 4 MG/ML VIAL IV PRN (06:28)
[2017-05-23] MEDS: Bumetanide 1 MG TAB PO SCH (07:54)
[2017-05-23] MEDS: Famotidine 20 MG TAB PO SCH (07:55)
[2017-05-23] MEDS: Multivit, Therapeutic 1 TAB PO SCH (07:55)
[2017-05-23] MEDS: Enoxaparin Sodium 80 MG/0.8 ML SYRINGE SC SCH ×2 (07:57→20:20)
[2017-05-23] MEDS: HYDROcodone/Acetaminophen 7.5/325 mg Tablet PO PRN ×2 (11:26→18:11)
[2017-05-23] MEDS: Vancomycin HCl 1.75 GM in Sodium Chloride 0.9% 500 ML IVPB SCH (12:05)
--- NOTE | 2017-05-23 20:45 | PRG ---
DATE OF SERVICE: 05/23/2017 SUBJECTIVE: Mr. Mora has no new complaints. He is febrile. Apparently some issues regarding ge tting a wound VAC set up for home. OBJECTIVE: VITAL SIGNS: He is afebrile, heart rate 84-100, respiratory rate 17. He looks totally comfortable. His oximetry is 100%, blood pressure 125/75. LUNGS: Clear. HEART: Regular rhythm. DATABASE: Cultures from his groin are growing no organisms so far. IMPRESSION: 1. Groin abscess leading to fever. 2. Tumor embolus and thromboembolic disease from renal cell carcinoma that has been resected. PLAN: Continue antimicrobial therapy and arrangements for wound care at home.
[2017-05-24] MEDS: Piperacillin/Tazobactam 3.375 GM, Admixture Fee 1 EACH in Sodium Chloride 0.9% 100 ML IVPB SCH ×3 (01:03→11:27)
[2017-05-24] MEDS: Morphine 4 MG/ML VIAL IV PRN (01:11)
[2017-05-24 07:50] VITALS: BP 140/75; TEMP 97.6
[2017-05-24] MEDS: Bumetanide 1 MG TAB PO SCH (08:11)
[2017-05-24] MEDS: Enoxaparin Sodium 80 MG/0.8 ML SYRINGE SC SCH (08:12)
[2017-05-24] MEDS: Famotidine 20 MG TAB PO SCH (08:12)
[2017-05-24] MEDS: Multivit, Therapeutic 1 TAB PO SCH (08:12)
[2017-05-24] MEDS: HYDROcodone/Acetaminophen 7.5/325 mg Tablet PO PRN ×2 (09:38→14:54)
[2017-05-24 11:29] LABS: Vancomycin, Trough 19.8 ug/mL
[2017-05-24] MEDS: Vancomycin HCl 1.75 GM in Sodium Chloride 0.9% 500 ML IVPB SCH (12:06)
--- NOTE | 2017-05-24 16:26 | PRG ---
DATE OF SERVICE: 05/24/2017 SUBJECTIVE: Mitul Mora says he is feeling better than he felt yesterday. He feels like he has more strength. OBJECTIVE: LUNGS: Clear. CARDIOVASCULAR: Regular rhythm. ABDOMEN: Soft. IMPRESSION: Groin abscess. The main issue at hand is getting him the supplies he needs for his woun d VAC to work properly at home. His hemoglobin is stable at 10 g. Renal function is stable. Creatinine 1.47. Wound cultures have n ot grown an organism yet, but there is possible "growth". He remains on IV antimicrobial therapy with Zosyn and vancomycin. ADDENDUM: I think it would be reasonable to stop his vancomycin since we have not isolated MRSA on aerobic cult ures and he has 1 kidney.
--- NOTE | 2017-05-24 17:09 | DIS ---
DATE OF ADMISSION: 05/18/2017 DATE OF DISCHARGE: 05/24/2017 ADMITTING DIAGNOSES: Sepsis and fever of unknown etiology with pulmonary infarction found on chest x -ray with gross hematuria with known metastatic renal cell carcinoma, status post right nephrectomy w ith emboli, also with known chronic stage 3 kidney disease, history of pulmonary emboli, hypertension , hyperlipidemia, and nephrolithiasis. DISCHARGE DIAGNOSES: Right groin abscess, status post incision and drainage of 100 mL abscess and se psis and fever of unknown etiology with pulmonary infarction found on chest x-ray with gross hematuri a with known metastatic renal cell carcinoma, status post right nephrectomy with emboli, also with kn own chronic stage 3 kidney disease, history of pulmonary emboli, hypertension, hyperlipidemia, and ne phrolithiasis. CONSULTATIONS: Pulmonology, Urology, General Surgery and Oncology. HOSPITAL COURSE: The patient is a 66-year-old male, patient of Dr. William Delgado's, who has got a very complicated history, was admitted due to sepsis and fever with the recent history of renal cell carcinoma and a new finding of a pulmonary infarct, was found to have an abscess in his right g roin that was operated on by Dr. Cardona. It is at the site where he had had ECMO treatment and they u sed the right groin for access to do his ECMO and it was in that site that he has developed the absce ss. After the operation and incision and drainage of the abscess, the patient has done very well. A t the time of discharge, the patient is afebrile for more than 48 hours, tolerating p.o. well. Plan is to discharge him home to continue on home health with his wound VAC with wound care. He will have antibiotics for 1 week. We are going to cover him with some pain medicines. He is to continue on h is regular home medicines and will follow up with Dr. Delgado inside of a week and Dr. Cardona in a coup le weeks and Dr. Delgado will determine further followup with other specialists as they are necessary and needed.
== END 2017-05-24 15:58 | disposition home health service (06) | DRG 853 ==
LOC: ERS 19:21 → ONC 22:12
PROVIDERS: ADMIT Family Medicine; ATTEND Family Medicine
PROC: 0Y950ZZ Drainage of Right Inguinal Region, Open Approach (ICD-10-PCS; principal; 2017-05-22)
DX: A41.9 Sepsis, unspecified organism (principal); I26.99 Other pulmonary embolism without acute cor pulmonale; N18.3 Chronic kidney disease, stage 3 (moderate); C79.89 Secondary malignant neoplasm of other specified sites; T81.4XXA Infection following a procedure, initial encounter; L02.214 Cutaneous abscess of groin; C64.1 Malignant neoplasm of right kidney, except renal pelvis; Z90.5 Acquired absence of kidney; R31.0 Gross hematuria; I12.9 Hypertensive chronic kidney disease with stage 1 through stage 4 chronic kidney disease, or unspecified chronic kidney disease; E78.5 Hyperlipidemia, unspecified; N20.0 Calculus of kidney; I27.20 Pulmonary hypertension, unspecified
CPT/HCPCS: 36415; 71010; 76881; 80053; 80202; 81003; 81015; 82248; 82565; 83605; 83615; 83880; 84100; 84484; 84550; 85014; 85018; 85025; 85049; 87040; 87070; 87076; 87086; 87205; 93005; 93306; 96361; 96365; 96368; 96372; 96375; A4216; J1100; J1650; J2001; J2270; J2405; J2543; J2704; J3010; J3370; J7050

== ENCOUNTER 2017-07-27 09:22 | Outpatient (CLI) | payer MEDICARE ==
[2017-07-27] MEDS ORDERED: Iopamidol 370 76% 100 ML VIAL ONE (13:41)
== END 2017-07-27 09:23 | disposition home or self-care (01) ==
LOC: BICCT 09:22
PROVIDERS: ATTEND Internal Medicine Hematology & Oncology
DX: C64.9 Malignant neoplasm of unspecified kidney, except renal pelvis (principal); K76.89 Other specified diseases of liver; Z90.5 Acquired absence of kidney
CPT/HCPCS: 71260; 74177

== ENCOUNTER 2018-01-25 08:19 | Outpatient (CLI) | payer MEDICARE ==
--- NOTE | 2018-01-25 11:25 | CT ---
CT CHEST WITH CONTRAST CT ABDOMEN AND PELVIS WITH CONTRAST: Date: 01/25/18 INDICATION: Malignant neoplasm of right kidney, follow-up imaging. FINDINGS: Patient is status post right nephrectomy. When comparing to the 05/12/17 CT abdomen exam, there has b een near complete resolution of prior fluid density of the postoperative right renal fossa with minim al residua remaining. There is no evidence of pulmonary mass or suspicious nodule. There are scattere d areas of interstitial prominence of the lungs. No effusion or pneumothorax. There is no regional ad enopathy visualized. Small cysts of the left kidney and additional hypodensities are present, too sma ll to further characterize, and stable appearing. No left-sided hydroureteronephrosis. There are smal l hypodensities of the hepatic parenchyma, near the hepatic dome and involving the right hepatic lobe , too small to further characterize, stable. Urinary bladder is mildly distended and unopacified. Pro state gland is stable appearing, within normal limits of size. There is no acute osseous pathology. S table sclerotic foci within the lumbar spine may relate to bone islands. IMPRESSION: 1. Interval, near complete resolution of prior fluid density of the postoperative right renal fossa with minimal residua remaining. 2. No interval findings to indicate interval metastatic disease. 3. Additional details are described above. POS: [facility]
[2018-01-25] MEDS ORDERED: Iopamidol 370 76% 100 ML VIAL ONE (12:55)
== END 2018-01-25 08:20 | disposition home or self-care (01) ==
LOC: CT 08:19
PROVIDERS: ATTEND Internal Medicine Hematology & Oncology
DX: C64.1 Malignant neoplasm of right kidney, except renal pelvis (principal); N28.1 Cyst of kidney, acquired; K76.89 Other specified diseases of liver; N28.89 Other specified disorders of kidney and ureter; Z90.5 Acquired absence of kidney
CPT/HCPCS: 71260; 74177; 82565

== ENCOUNTER 2018-05-03 08:11 | Emergency (ER) | payer MEDICARE ==
[2018-05-03] MEDS ORDERED: Lidocaine 1% w/Epinephrine 1:100K 20 ML VIAL ONE (09:08)
[2018-05-03] MEDS ORDERED: Sulfameth/Trimethoprim DS 800-160mg TAB ONE (09:37)
[2018-05-03] MEDS ORDERED: Cephalexin 250 MG CAP ONE (09:37)
== END 2018-05-03 09:47 | disposition home or self-care (01) ==
LOC: ERS 08:11
DX: L08.9 Local infection of the skin and subcutaneous tissue, unspecified (principal); Z87.891 Personal history of nicotine dependence
CPT/HCPCS: 10060; 87070; 87077; 87186; 87205; J2001

== ENCOUNTER 2018-05-25 08:27 | Outpatient (CLI) | payer MEDICARE ==
--- NOTE | 2018-05-25 10:12 | CT ---
CONTRAST ENHANCED IMAGES OF THE CHEST, ABDOMEN AND PELVIS: Date: 05-25-18 History: right sided nephrectomy and hx of renal neoplasm Comparison: 01-25-18 FINDINGS: CT chest demonstrates no definite evidence of lung parenchymal masses or lesions. No evidence of medi astinal, axillary, or hilar lymphadenopathy is seen. The osseous structures are intact. CT ABDOMEN AND PELVIS: The liver is unremarkable. The gallbladder and pancreas are unremarkable. The right kidney has been s urgically removed. Periaortic and pericaval surgical clips in place. Nodular hypodense lesions seen in the left kidney compatible with renal cysts, unchanged since the pr evious exam. No evidence of definite solid parenchymal left renal lesions seen. No evidence of hydronephrosis seen on the left. No definite evidence of periaortic lymphadenopathy is seen. No evidence of osseous lesions seen in the abdomen and pelvis. IMPRESSION: Status post right sided nephrectomy and post-surgical changes. No evidence of obvious metastatic dise ase seen. POS: K[facility]
[2018-05-25] MEDS ORDERED: Iopamidol 370 76% 100 ML VIAL ONE (13:38)
== END 2018-05-25 08:28 | disposition home or self-care (01) ==
LOC: CT 08:27
PROVIDERS: ATTEND Internal Medicine Hematology & Oncology
DX: C64.1 Malignant neoplasm of right kidney, except renal pelvis (principal); Z90.5 Acquired absence of kidney
CPT/HCPCS: 71260; 74177; 82565

== ENCOUNTER 2018-10-27 08:04 | Outpatient (CLI) | payer MEDICARE ==
[2018-10-27] MEDS ORDERED: Iopamidol 370 76% 100 ML VIAL ONE (10:43)
--- NOTE | 2018-10-27 10:57 | CT ---
CT CHEST AND ABDOMEN AND PELVIS WITH IV CONTRAST: Multiple axial tomograms obtained through the chest, abdomen, and pelvis with IV enhancement. Oral c ontrast was administered. INDICATION: History of right renal cancer and right nephrectomy. COMPARISON: Comparison is made to CT chest, abdomen, and pelvis 05/25/2018. FINDINGS: CT CHEST: Mild stranding in the posterior lower lobes appears stable. There is also a focal area of pleural-ba sed stranding in the periphery of the left upper lobe, image 26, which is stable. New stranding toda y is seen in the right middle lobe with some hazy opacity seen peripherally in the right middle lobe. This is probably related to atelectasis. Early infiltrate cannot be excluded. Recommend clinical correlation. Mediastinum is unremarkable. No adenopathy. Thyroid unremarkable. The axillae appear unremarkable. Osseous structures unremarkable. IMPRESSION: 1. There is a new hazy ground-glass density in the right middle lobe today. This probably relates t o mild atelectasis. Early infiltrate cannot be excluded and recommend clinical correlation. 2. There are chronic lung parenchymal changes with parenchymal stranding again noted as described ab ove which is stable. CT ABDOMEN AND PELVIS: The liver and spleen are unremarkable. Pancreas is unremarkable. Stomach and duodenum unremarkable. Post right nephrectomy changes are again noted. Adrenal glands appear normal. Left kidney again shows numerous small cystic lesions which are all stable. No enhancing mass. The left kidney appears stable. Small bowel loops are normal caliber. Appendix appears normal. Colon unremarkable. Aorta normal caliber. No adenopathy identified. Images through the pelvis unremarkable. Prostate is upper normal size and stable. Osseous structure s unremarkable. IMPRESSION: 1. Post right nephrectomy changes are stable. 2. Small cysts in the left kidney are stable. 3. No acute finding or interval change noted in the abdomen or pelvis. POS: [facility]
== END 2018-10-27 08:05 | disposition home or self-care (01) ==
LOC: CT 08:04
PROVIDERS: ATTEND Internal Medicine Hematology & Oncology
DX: C64.1 Malignant neoplasm of right kidney, except renal pelvis (principal); N28.1 Cyst of kidney, acquired; Z98.890 Other specified postprocedural states
CPT/HCPCS: 71260; 74177; 82565; Q9967

== ENCOUNTER 2018-11-18 15:50 | Outpatient (CLI) | payer MEDICARE ==
[2018-11-18 17:30] LABS: #Basophils 0.1 thou/uL (0.0-0.2); #Eosinphils 0.2 thou/uL (0.0-0.7); #Lymphocytes 1.6 thou/uL (1.20-3.40); #Monocytes 0.6 thou/uL (0.11-0.59); #Neutrophils 4.1 thou/uL (1.40-6.50); %Basophils 0.8 % (0.0-1.0); %Eosinophils 3.2 % (0.0-10.0); %Lymphocytes 24.8 % (21.0-51.0); %Monocytes 8.5 % (0.0-10.0); %Neutrophils 62.7 % (42.0-75.0); Hemoglobin 15.1 g/dL (14.0-18.0); Mean Corpuscular Hemoglobin 31.4 pg (27.0-31.0); Mean Corpuscular Volume 95.2 fL (78.0-98.0); Mean Platelet Volume 8.4 fL (7.4-10.4); Platelet Count 190 thou/uL (130-400); RBC Distribution Width 12.2 % (11.5-14.5); Red Blood Cell (RBC) Count 4.82 mill/uL (4.70-6.10); White Blood Cell (WBC) Count 6.6 thou/uL (4.8-10.8)
[2018-11-18 17:50] LABS: ALT (SGPT) 21 U/L (8-55); AST (SGOT) 20 U/L (5-34); Albumin 4.6 g/dL (3.4-4.8); Alkaline Phosphatase 116 U/L (40-150); Anion Gap 14 mmol/L (10-20); BUN (Urea Nitrogen) 22 mg/dL (8.4-25.7); Bilirubin, Total 0.6 mg/dL (0.2-1.2); Calc. Creatinine Clearance 0 mL/min (70-130); Calcium 9.5 mg/dL (7.8-10.44); Carbon Dioxide 22 mmol/L (23-31); Chloride 108 mmol/L (98-107); Estimated GFR-MDRD 50; Globulin 2.6 g/dL (2.4-3.5); Glucose 76 mg/dL (80-115); Potassium 4.4 mmol/L (3.5-5.1); Protein, Total 7.2 g/dL (5.8-8.1); Sodium 140 mmol/L (136-145)
== END 2018-11-18 15:51 | disposition home or self-care (01) ==
LOC: LABBT 15:50
PROVIDERS: ATTEND Surgery
DX: Z01.818 Encounter for other preprocedural examination (principal); K40.91 Unilateral inguinal hernia, without obstruction or gangrene, recurrent
CPT/HCPCS: 80053; 85025; 93005; 93010

== ENCOUNTER 2018-12-01 05:51 | Day surgery (SDC) | payer MEDICARE ==
[2018-11-18 16:03] VITALS: BMI 24.5
[2018-12-01] MEDS ORDERED: Fentanyl 100 MCG/2 ML VIAL ONE (06:33)
[2018-12-01] MEDS ORDERED: Bupivacaine/Epinephrine 0.25% 30 ML VIAL ONE (06:48)
[2018-12-01] MEDS ORDERED: HYDROcodone/Acetaminophen 5/325 mg Tablet ONE (10:30)
--- NOTE | 2018-12-01 12:02 | OP ---
DATE OF PROCEDURE: 12/01/2018 PREOPERATIVE DIAGNOSIS: Recurrent right inguinal hernia. PROCEDURE PERFORMED: Recurrent right inguinal hernia repair with mesh. INDICATIONS: A 67-year-old male, who had a previous non-mesh right inguinal hernia repair 30 or 40 years ago with a recurrent painful bulge. FINDINGS: He had both a direct inguinal hernia as well as an indirect inguinal hernia, moderate scar tissue. DESCRIPTION OF PROCEDURE: After informed consent was obtained, the patient was taken to the operating room and given general mask anesthesia, placed in supine position. His groin was prepped and draped in usual fashion. Local anesthesia infiltrated subcutaneously and deep. A transverse inguinal incision was performed. Subcu divided sharply. The fascia external oblique was found. It was incised with a 15 blade scalpel and then a lysis of adhesions was performed to free up the external oblique fascia. Then, the spermatic cord was found. It was dissected out and isolated with a Shin drain. There was a small direct inguinal hernia seen, cremasteric fibers , and an indirect hernia sac was also found. This was dissected from surrounding cord structures down to the internal ring. It was fairly large. Redundant sac excised and the sac closed with a 2-0 silk suture. The proximal sac was reduced. Reduction maintained with a PHS hernia system. The posterior layer was placed in the preperitoneal space, anterior was laid out, tucked under the external oblique fascia laterally, sutured to the pubic tubercle medially. A notch was cut out in the mesh for the spermatic cord. Hemostasis assured. The cord placed anatomically. The external oblique fascia closed with a running 3-0 Vicryl. Yamel was closed with interrupted 3-0 Vicryl and the skin closed with a running subcuticular 4-0 Rapide. Steri-Strips applied. Sterile bandage applied. The patient tolerated the procedure well, transferred to Recovery in good condition. Sponge and needle count verified correct x2. Job ID: [id number]
== END 2018-12-01 11:15 | disposition home or self-care (01) ==
LOC: SDC 05:51
PROVIDERS: ATTEND Surgery
PROC: 0YU50JZ Supplement Right Inguinal Region with Synthetic Substitute, Open Approach (ICD-10-PCS; principal; 2018-12-01)
DX: K40.91 Unilateral inguinal hernia, without obstruction or gangrene, recurrent (principal); I10 Essential (primary) hypertension; E78.5 Hyperlipidemia, unspecified; Z79.899 Other long term (current) drug therapy; Z87.891 Personal history of nicotine dependence
CPT/HCPCS: 36415; 80048; 81003; 85025; 87086; C1781; J0690; J3010

== ENCOUNTER 2018-12-01 16:40 | Emergency (ER) | payer MEDICARE ==
[2018-12-01 17:39] LABS: #Eosinphils 0.1 thou/uL (0.0-0.7); #Lymphocytes 1.3 thou/uL (1.20-3.40); #Monocytes 0.9 thou/uL (0.11-0.59); #Neutrophils 9.2 thou/uL (1.40-6.50); %Basophils 0.3 % (0.0-1.0); %Eosinophils 0.8 % (0.0-10.0); %Lymphocytes 11.5 % (21.0-51.0); %Monocytes 7.8 % (0.0-10.0); %Neutrophils 79.6 % (42.0-75.0); Hemoglobin 14.9 g/dL (14.0-18.0); Mean Corpuscular HGB CONC 33.6 g/dL (32.0-36.0); Mean Corpuscular Hemoglobin 31.9 pg (27.0-31.0); Mean Corpuscular Volume 95.1 fL (78.0-98.0); Mean Platelet Volume 8.3 fL (7.4-10.4); Platelet Count 162 thou/uL (130-400); RBC Distribution Width 12.2 % (11.5-14.5); Red Blood Cell (RBC) Count 4.65 mill/uL (4.70-6.10); White Blood Cell (WBC) Count 11.6 thou/uL (4.8-10.8)
[2018-12-01 18:02] LABS: Anion Gap 13 mmol/L (10-20); BUN (Urea Nitrogen) 25 mg/dL (8.4-25.7); Calc. Creatinine Clearance 0 mL/min (70-130); Calcium 8.5 mg/dL (7.8-10.44); Carbon Dioxide 20 mmol/L (23-31); Chloride 108 mmol/L (98-107); Estimated GFR-MDRD 44; Glucose 117 mg/dL (80-115); Potassium 4.6 mmol/L (3.5-5.1); Sodium 136 mmol/L (136-145)
[2018-12-01 18:10] LABS: Bilirubin Negative (Negative); Blood, Urine Negative (Negative); Clarity CLEAR (Clear); Glucose, Urine (Dipstick) Negative (Negative); Leukocyte Negative (Negative); Nitrite Negative (Negative); Protein, Urine (Dipstick) Trace mg/dL (Neg-Trace); Specific Gravity, Urine 1.029 (1.002-1.036); Urobilinogen 0.2 mg/dL (0.2-1.0); pH, Urine 5.5 (5.0-9.0)
== END 2018-12-01 18:41 | disposition home or self-care (01) ==
LOC: ERS 16:40
DX: N40.1 Benign prostatic hyperplasia with lower urinary tract symptoms (principal); N13.8 Other obstructive and reflux uropathy; Z86.711 Personal history of pulmonary embolism; Z87.891 Personal history of nicotine dependence
CPT/HCPCS: 36415; 80048; 81003; 85025; 87086

== ENCOUNTER 2018-12-11 17:05 | Inpatient (IN) | payer MEDICARE ==
[~2018-12-11 17:05] MED LIST: ISOVUE-370 76%-LOCM 1 ML ONE
[2018-12-11 17:54] LABS: Bilirubin Negative (Negative); Blood, Urine Moderate (Negative); Clarity CLOUDY (Clear); Glucose, Urine (Dipstick) 250 mg/dL (Negative); Leukocyte Large (Negative); Nitrite Negative (Negative); Protein, Urine (Dipstick) 30 mg/dL (Neg-Trace); Specific Gravity, Urine 1.014 (1.002-1.036); Urobilinogen 0.2 mg/dL (0.2-1.0)
[2018-12-11 17:56] LABS: Bacteria/HPF None Seen HPF (None Seen); Hyaline Casts/LPF 0-3 HYALINE CAST LPF (0-3 Hyaline); Pathc Cast-AUWi Flag 0.27 (0-2.49); RBC/HPF 0-3 HPF (0-3); Squamous Epithelial None Seen HPF (0-3); Yeast-AUWi Flag 9.1 (0-25.0)
[2018-12-11 18:13] LABS: Hemoglobin 14.3 g/dL (14.0-18.0); Mean Corpuscular HGB CONC 33.3 g/dL (32.0-36.0); Mean Corpuscular Hemoglobin 31.6 pg (27.0-31.0); Mean Platelet Volume 8.1 fL (7.4-10.4); Platelet Count 167 thou/uL (130-400); RBC Distribution Width 12.2 % (11.5-14.5); Red Blood Cell (RBC) Count 4.52 mill/uL (4.70-6.10); White Blood Cell (WBC) Count 21.4 thou/uL (4.8-10.8)
--- NOTE | 2018-12-11 18:15 | RAD ---
XR Chest 1 View Portable History: Fever Comparison: Radiograph 2017 Findings: Lungs are clear. No pneumothorax. No effusion. Cardiac silhouette and mediastinal contours are within normal limits. Impression: No acute intrathoracic abnormality.
[2018-12-11 18:33] LABS: Band 15 % (5-11); Lymphocytes 3 % (21-51); MDiff Complete? YES; Monocytes 5 % (0-10); Neutrophil 77 % (42-75); Platelet Morphology Comment Appears Adequate
[2018-12-11 18:34] LABS: ALT (SGPT) 13 U/L (8-55); AST (SGOT) 10 U/L (5-34); Albumin 3.9 g/dL (3.4-4.8); Alkaline Phosphatase 108 U/L (40-150); Anion Gap 11 mmol/L (10-20); BUN (Urea Nitrogen) 25 mg/dL (8.4-25.7); Bilirubin, Total 0.8 mg/dL (0.2-1.2); Calc. Creatinine Clearance 0 mL/min (70-130); Calcium 9.1 mg/dL (7.8-10.44); Carbon Dioxide 24 mmol/L (23-31); Chloride 105 mmol/L (98-107); Estimated GFR-MDRD 45; Globulin 3.2 g/dL (2.4-3.5); Glucose 119 mg/dL (80-115); Potassium 4.1 mmol/L (3.5-5.1); Protein, Total 7.1 g/dL (5.8-8.1); Sodium 136 mmol/L (136-145)
--- NOTE | 2018-12-11 19:19 | CT ---
CT Abdomen Pelvis W Con History: Fever Comparison: CT October 27, 2018 Findings: Lung bases are clear. No pericardial effusion. Prior right nephrectomy. Similar appearance of a right pericapsular nodule along the right hepatic capsule at segment 6 axial image 30 of unknown significance. There is an abnormal collection of fluid within the the right inguinal canal which also contains gas. This measures 3.5 x 2.3 x 3.7 cm. Overlying soft tissue thick ening and edema. The appendix is visualized and is normal. No dilated loops of large or small bowel. There are calcifi cations within a cyst interpolar left kidney. There are other smaller hypodensities inferior pole left kidney which are similar. No left hydronephrosis. Small volume fluid in the right nephrectomy be d. Impression: 1. Small abscess along the right inguinal canal measuring 3.5 x 2.3 x 3.7 cm. 2. Abnormal edema of the prevesicular space may be postsurgical in nature versus cystitis. 3. 15 mm soft tissue nodule abutting the right hepatic capsule axial image 30 and coronal image 106 i s new from 2017 and may reflect a metastatic implant.
[2018-12-11] MEDS ORDERED: cefTRIAXone\\ROCEPHIN 2 GM VIAL ONE (20:16)
[2018-12-11] MEDS ORDERED: Ondansetron ODT 4 MG TAB SL PRN (21:40)
[2018-12-11] MEDS ORDERED: Ondansetron PF 4 MG/2 ML Vial IVP PRN (21:40)
[2018-12-11] MEDS ORDERED: Acetaminophen 325 MG TAB PO PRN (21:40)
[2018-12-11 22:05] VITALS: BMI 24.9
[2018-12-11] MEDS ORDERED: Ondansetron ODT 4 MG TAB PO PRN (22:44)
[2018-12-12] MEDS: Sodium Chloride 0.9% 1,000 ML IV SCH ×4 (00:09→23:56)
[2018-12-12] MEDS: HYDROcodone/Acetaminophen 7.5/325 mg Tablet PO PRN ×3 (00:16→23:55)
[2018-12-12] MEDS: Acetaminophen 325 MG TAB PO PRN ×2 (00:16→17:45)
[2018-12-12 05:42] LABS: Anion Gap 11 mmol/L (10-20); BUN (Urea Nitrogen) 20 mg/dL (8.4-25.7); Calc. Creatinine Clearance 61 mL/min (70-130); Calcium 7.8 mg/dL (7.8-10.44); Carbon Dioxide 19 mmol/L (23-31); Chloride 113 mmol/L (98-107); Estimated GFR-MDRD 55; Glucose 99 mg/dL (80-115); Potassium 4.2 mmol/L (3.5-5.1); Sodium 139 mmol/L (136-145)
[2018-12-12 05:55] LABS: Band 16 % (5-11); Hemoglobin 11.9 g/dL (14.0-18.0); Lymphocytes 9 % (21-51); MDiff Complete? YES; Mean Corpuscular HGB CONC 33.5 g/dL (32.0-36.0); Mean Corpuscular Hemoglobin 31.9 pg (27.0-31.0); Mean Corpuscular Volume 95.2 fL (78.0-98.0); Mean Platelet Volume 8.6 fL (7.4-10.4); Monocytes 6 % (0-10); Neutrophil 67 % (42-75); Platelet Count 132 thou/uL (130-400); Platelet Morphology Comment Appears Adequate; RBC Distribution Width 12.1 % (11.5-14.5); Reactive Lymphocytes 2 % (0-10); Red Blood Cell (RBC) Count 3.74 mill/uL (4.70-6.10); White Blood Cell (WBC) Count 18.4 thou/uL (4.8-10.8)
[2018-12-12] MEDS: Multivit, Therapeutic 1 TAB PO SCH (07:37)
[2018-12-12] MEDS ORDERED: Tamsulosin HCl 0.4 MG CAP PO SCH (15:15)
--- NOTE | 2018-12-12 19:13 | HP ---
HISTORY OF PRESENT ILLNESS: The patient is a 68-year-old male, patient of Dr. William Delgado, who is a week out from a right inguinal hernia open repair done by Dr. Cardona, started feeling bad with a worsening right lower quadrant pain and some temperature and difficulty urinating with pain on urination, came into the emergency room, was found to have significant urinary tract infection with fever and early onset urosepsis and the BP in the 100s systolic with a heart rate 99 to 100. He had a scan in the ER that showed slight fluid collection in the right lower quadrant, but it being called a seroma due to the proximity of the timing of the hernia repair. He also has a 15 mm nodule in the right hepatic capsule. PAST MEDICAL HISTORY: Right renal cell carcinoma, status post right nephrectomy at 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 PAST SURGICAL HISTORY: He had an ECMO in place in the right groin as part of the care he received for the right nephrectomy and also has a herniorrhaphy procedure done. A cancer in the left eye was removed, multiple skin cancers. Also, an I and D of the groin abscess was done in May of 2017. MEDICATIONS: He is on pravastatin 20 mg a day and multivitamin, and he has been on recent some Hancock postoperatively. FAMILY HISTORY: Father had lung cancer, also hypertension, heart disease, and a stroke. Mother also had liver cancer and heart disease. He has a brother, who has schizophrenia and he has a sister, who had breast cancer. SOCIAL HISTORY: He quit smoking in 1982. No alcohol use. 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 ALLERGIES: HE HAS NO ALLERGIES. REVIEW OF SYSTEMS: Denies any headache. No visual changes. No trouble chewing or swallowing. No cough. No chest pain. No hemoptysis. Has mild nausea, but no vomiting. No hematemesis. Denies any changes in bowel habits. Did have the dysuria, but saw no hematuria or hematochezia. Denies any paresis or paresthesias. Denies any changes in strength or sensation. Denies any auditory or visual hallucinations, any homicidal or suicidal ideations. PHYSICAL EXAMINATION: VITAL SIGNS: Temperature 98.6, pulse 67, respirations 18, and BP is 101/64. GENERAL: He is resting in bed comfortably, conversing easily. Alert and oriented x4, in no acute distress. HEENT: Essentially unremarkable. Pupils are equal, round, reactive to light and accommodation. Extraocular movements are intact. Mucous membranes are moist. He is anicteric. NECK: Supple. No JVD. No bruits. No thyromegaly. LUNGS: Clear to auscultation bilaterally. No rales, rhonchi, or wheezes. HEART: S1, S2. No rubs, murmurs, or gallops. ABDOMEN: Soft, only tenderness is mild in the right lower quadrant, where he has well-healing right inguinal hernia, open wound, healing. No localized erythema. No induration. No drainage. Steri-Strips are still in place. He has a well-healed bucket-handle incision on his abdomen from the right nephrectomy. He has bowel sounds throughout. No hepatomegaly. No splenomegaly. EXTREMITIES: Show good palpable pulses in all four extremities. No cyanosis, clubbing, or edema. NEUROLOGICAL: Grossly intact. Cranial nerves 2 through 12 are equal and symmetrical. LABORATORY DATA: His initial white count was 21.4 in the emergency room and now it is 18.4. His hemoglobin initially was 14 and now is 11.9. Neutrophils initially were 77 and have come down to 67. His bands were initially 15, essentially the same at 16. His electrolytes shows sodium of 139, potassium 4.2, chloride 113, bicarb 19, BUN is 20, creatinine is 1.3. CRP is elevated at 22.9. His urine as stated before shows too numerous to count urinary white cells, positive leukocyte esterase, also with moderate hematuria. ASSESSMENT: Urinary tract infection, likely prostate of origin as he did state that he has been having issues with the prostate for several months. We will continue right now with Rocephin that he is receiving and we will plan on switching to appropriate antibiotics when the cultures result is returned. We will make further determinations as lab results come back. Job ID: [id number]
[2018-12-12] MEDS: cefTRIAXone\\ROCEPHIN 1 GM in Sodium Chloride 0.9% 100 ML IVPB SCH (20:40)
[2018-12-13 06:44] LABS: #Eosinphils 0.6 thou/uL (0.0-0.7); #Lymphocytes 1.2 thou/uL (1.20-3.40); #Neutrophils 9.3 thou/uL (1.40-6.50); %Basophils 0.2 % (0.0-1.0); %Eosinophils 5.1 % (0.0-10.0); %Lymphocytes 10.2 % (21.0-51.0); %Monocytes 8.3 % (0.0-10.0); %Neutrophils 76.2 % (42.0-75.0); Hemoglobin 11.2 g/dL (14.0-18.0); Mean Corpuscular Hemoglobin 31.8 pg (27.0-31.0); Mean Corpuscular Volume 96.4 fL (78.0-98.0); Mean Platelet Volume 8.5 fL (7.4-10.4); Platelet Count 128 thou/uL (130-400); RBC Distribution Width 12.1 % (11.5-14.5); Red Blood Cell (RBC) Count 3.53 mill/uL (4.70-6.10); White Blood Cell (WBC) Count 12.2 thou/uL (4.8-10.8)
[2018-12-13 06:55] LABS: Anion Gap 11 mmol/L (10-20); BUN (Urea Nitrogen) 16 mg/dL (8.4-25.7); CRP (Inflammatory) 17.53 mg/dL (= or < 0.5); Calc. Creatinine Clearance 70 mL/min (70-130); Calcium 7.6 mg/dL (7.8-10.44); Carbon Dioxide 18 mmol/L (23-31); Chloride 116 mmol/L (98-107); Estimated GFR-MDRD 65; Glucose 81 mg/dL (80-115); Sodium 141 mmol/L (136-145)
[2018-12-13] MEDS: Multivit, Therapeutic 1 TAB PO SCH (09:18)
[2018-12-13] MEDS: Sodium Chloride 0.9% 1,000 ML IV SCH ×3 (09:18→20:31)
[2018-12-13] MEDS: Tamsulosin HCl 0.4 MG CAP PO SCH (09:18)
[2018-12-13] MEDS: HYDROcodone/Acetaminophen 7.5/325 mg Tablet PO PRN ×2 (10:03→19:16)
[2018-12-13] MEDS: Acetaminophen 325 MG TAB PO PRN ×2 (13:00→19:16)
--- NOTE | 2018-12-13 14:30 | PRG ---
DATE OF SERVICE: 12/13/2018 SUBJECTIVE: The patient continues to feel better daily. He does have some bloating this morning. OBJECTIVE: VITAL SIGNS: Temperature 98.3, pulse 76, respirations 18, pulse ox 93, and blood pressure 147/79. Temperature this a.m. did get up to 100.2. HEART: Regular rate and rhythm. LUNGS: Clear. ABDOMEN: Normal bowel sounds. Hyperactive. EXTREMITIES: With no edema. LABORATORY DATA: White count down from 21.4 to 18.4 to 12.2. Bandemia resolved. Creatinine 1.12, BUN 16. Creatinine down from 1.53. CRP elevated. Micro showed blood culture negative. Urine culture still shows Serratia marcescens 10 to 25,000 CFU, sensitive to Rocephin, Cipro, and Levaquin. ASSESSMENT: 1. Urosepsis. 2. Prostatitis possibly secondary to prolonged instrumentation with a Albrecht catheter following the right inguinal hernia repair. Feeling much better at this time. 3. Right renal cell carcinoma, status post right nephrectomy. 4. Hypertension. 5. Hyperlipidemia. 6. Chronic low back pain. 7. History of kidney stones. PLAN: 1. Continue hydration. 2. Continue IV Rocephin. 3. Hopefully, can discharge in a.m. Job ID: [id number]
[2018-12-13] MEDS: cefTRIAXone\\ROCEPHIN 1 GM in Sodium Chloride 0.9% 100 ML IVPB SCH (20:29)
[2018-12-14] MEDS: Acetaminophen 325 MG TAB PO PRN ×2 (02:29→09:39)
[2018-12-14] MEDS: HYDROcodone/Acetaminophen 7.5/325 mg Tablet PO PRN ×4 (02:29→21:21)
[2018-12-14 04:47] LABS: #Eosinphils 0.3 thou/uL (0.0-0.7); #Lymphocytes 0.7 thou/uL (1.20-3.40); #Neutrophils 7.4 thou/uL (1.40-6.50); %Basophils 0.2 % (0.0-1.0); %Eosinophils 2.8 % (0.0-10.0); %Lymphocytes 6.9 % (21.0-51.0); %Monocytes 10.8 % (0.0-10.0); %Neutrophils 79.2 % (42.0-75.0); Hemoglobin 11.4 g/dL (14.0-18.0); Mean Corpuscular HGB CONC 33.9 g/dL (32.0-36.0); Mean Corpuscular Hemoglobin 31.9 pg (27.0-31.0); Mean Corpuscular Volume 94.1 fL (78.0-98.0); Mean Platelet Volume 7.9 fL (7.4-10.4); Platelet Count 135 thou/uL (130-400); Red Blood Cell (RBC) Count 3.57 mill/uL (4.70-6.10); White Blood Cell (WBC) Count 9.4 thou/uL (4.8-10.8)
[2018-12-14 05:07] LABS: Anion Gap 9 mmol/L (10-20); BUN (Urea Nitrogen) 15 mg/dL (8.4-25.7); Calc. Creatinine Clearance 73 mL/min (70-130); Calcium 8.1 mg/dL (7.8-10.44); Carbon Dioxide 20 mmol/L (23-31); Chloride 113 mmol/L (98-107); Estimated GFR-MDRD 68; Glucose 97 mg/dL (80-115); Potassium 3.9 mmol/L (3.5-5.1); Sodium 138 mmol/L (136-145)
[2018-12-14] MEDS: Sodium Chloride 0.9% 1,000 ML IV SCH ×2 (07:09→18:12)
[2018-12-14] MEDS: Multivit, Therapeutic 1 TAB PO SCH (08:23)
[2018-12-14] MEDS: Tamsulosin HCl 0.4 MG CAP PO SCH (08:23)
[2018-12-14] MEDS ORDERED: ISOVUE-370 76%-LOCM 1 ML ONE (09:40)
--- NOTE | 2018-12-14 10:05 | PQF ---
GUILLERMO SU, PONCE Stack JR, MD [id number] CLINICAL DOCUMENTATION IMPROVEMENT CLARIFICATION FORM: ICD-10 Updated PLEASE DO AN ADDENDUM TO THE PROGRESS NOTE WITH ANY DOCUMENTATION UPDATES OR ADDITIONS AND CARRY THROUGH TO DC SUMMARY. THANK YOU. DATE: ATTN: DR PONCE ARMENDARIZ Please exercise your independent, professional judgment in responding to the clarification form. Clinical indicators are provided on the bottom of this form for your review. Please check appropriate box(es): [ ] Sepsis due to UTI due to Higgins Catheter x8 days inserted after recent R inguinal surgery on 12/01 [ x ] Sepsis due to UTI NOT due to Higgins Catheter x8 days inserted after recent R inguinal surgery on 12/01 [ ] Localized infection without sepsis [ ] Other diagnosis [ ] Unable to determine In addition, please specify: Present on Admission (POA): [ x ] Yes [ ] No [ ] Unable to determine For continuity of documentation, please document condition throughout progress notes and discharge summary. Thank You. CLINICAL INDICATORS - SIGNS / SYMPTOMS / LABS LABS: WBC 21.4, BANDS 15%, CRP 22.9 URINE: LARGE L.E., WBC TNTC URINE CX: SERRATIA MARCESCENS ER PHYSICIAN DOCUMENTATION 12/11: PT EXPERIENCING FEVER W/ TEMP OF 103; REPORTS PT HAD HERNIA REPAIR ON R INGUINAL ON November W/ A CATHETER PLACED FOR 8 DAYS AFTER THAT; FINAL DIAGNOSES: SEPSIS URINARY SOURCE H&P 12/11 (TONE): HX PRESENT ILLNESS: ...CAME TO THE EMERGENCY ROOM, WAS FOUND TO HAVE SIGNIFICANT URINARY TRACT INFECTION W/ FEVER & EARLY ONSET UROSEPSIS ASSESSMENT: UTI, LIKELY PROSTATE OF ORIGIN PN 12/13 (KALA): ASSESSMENT: 1) UROSEPSIS, 2) PROSTATITIS POSSIBLY SECONDARY TO PROLONGED INSTRUMENTATION W/ HIGGINS CATHETER FOLLOWING R INGUINAL HERNIA REPAIR RISKS: RECENT HIGGINS CATHETER X8 DAYS AFTER R INGUINAL HERNIA SX (ER DOCUMENTATION) UTI (H&P) TREATMENT: IVF (2L NS IN ED; NS 12/12 - PRESENT) IV ANTIBIOTICS (ROCEPHIN 12/11 - PRESENT; LEVAQUIN 12/13 - PRESENT) THANK YOU! So (This form is maintained as a part of the permanent medical record) 2014 [employer]. All Rights Reserved So Davis RN, BSN [email or web address] Office: [phone] [facility]OSPITALSandy
--- NOTE | 2018-12-14 10:17 | PRG ---
DATE OF SERVICE: 12/14/2018 SUBJECTIVE: The patient states he may have turned the corner last night. He is feeling better this morning. However, still with a low-grade fever. OBJECTIVE: VITAL SIGNS: Temperature 99.8, pulse 84, respirations are 20, and blood pressure 123/68. HEART: Regular rate and rhythm. LUNGS: Clear. ABDOMEN: Soft and nontender. No CVA tenderness. EXTREMITIES: With no edema. LABORATORY DATA: White count decreased to 9.4, H and H 11 and 33, platelets are 135. Electrolytes, normal. Creatinine 1.08. BUN 15. Urine with Serratia marcescens; 10 to 25,000 CFU. Sensitive to Rocephin and Levaquin. ASSESSMENT: 1. Urosepsis. 2. Prostatitis. 3. Right renal cell carcinoma, status post right nephrectomy. 4. Hypertension. 5. Hyperlipidemia. 6. Chronic low back pain. 7. History of kidney stones followed by Dr. Marroquin. PLAN: 1. Dr. Marroquin consulted. 2. Continue hydration. 3. Continue Rocephin and Levaquin. 4. Hopefully can discharge soon. Job ID: [id number]
[2018-12-14] MEDS: cefTRIAXone\\ROCEPHIN 1 GM in Sodium Chloride 0.9% 100 ML IVPB SCH (21:21)
--- NOTE | 2018-12-14 23:23 | CT ---
CT pelvis with IV contrast HISTORY: Testicular pain and swelling. COMPARISON: 12/11/2018. FINDINGS: Postoperative changes of the right pelvis are apparent. Urinary bladder is incompletely dis tended. Near the right internal inguinal ring, a lobular collection of fluid and subtle adjacent fat strandin g is slightly smaller than on The prior study, measuring up to 3.6 cm oblique diameter on the axial images. No internal gas. No fat or bowel extend into the inguinal canal. There is diffuse skin thickening and edematous reaction throughout the scrotum. No internal gas. IMPRESSION: Slight interval decrease in size of the inflammation and fluid collection at the right in ternal inguinal ring. Interval resolution of the gas. No new abnormalities at this location. Diffuse skin thickening and edema about each side of the scrotum is now visible visualized without in ternal gas or other complication.
--- NOTE | 2018-12-15 02:49 | CON ---
DATE OF CONSULTATION: 12/14/2018 CONSULTING: Consulting is Dr. Delgado. CONSULTED: Dr. Marroquin. REASON FOR CONSULTATION: Prostatitis. HISTORY OF PRESENT ILLNESS: Mr. Mora is a 68-year-old white male, who is known to me for a history of renal cell carcinoma status post right nephrectomy at [facility]. He had a significant and complicated postoperative recovery, but did well afterwards. He recently underwent a right inguinal hernia repair, which was relatively uneventful. He had postoperative urinary retention and was discharged with scheduled followup with me for a void trial. Unfortunately, he began having UTI symptoms. We had him go to the lab to attempt to get a urine test done, so we could start him on antibiotics, but the patient progressed rapidly to urosepsis and went back to the emergency room where he was admitted to the hospital and started on IV antibiotics. He was admitted under Dr. Delgado and received ceftriaxone. He continued to spike fevers, so he was started on levofloxacin in addition to ceftriaxone. Despite this, he has continued to spike fevers. His catheter has been removed and he has been started on Flomax. He is voiding spontaneously, currently stating that he seems to be voiding well. He does have mild dysuria, but no current hematuria. He does state that he is having testicular pain and his scrotum is swollen. He is not having any significant problem with bowel movements. He denies any nausea or vomiting. ALLERGIES: NONE. HOME MEDICATIONS: 1. [place] 10/325. 2. Theragran. 3. Pravastatin. PAST MEDICAL HISTORY: 1. Right renal cell carcinoma. 2. Basal cell carcinoma in the left eye. 3. Pulmonary hypertension. 4. Hyperlipidemia. 5. Chronic lower back pain. 6. Kidney stones. 7. BPH. PAST SURGICAL HISTORY: 1. Right nephrectomy at [facility]. 2. ECMO during right nephrectomy. 3. Recent right herniorrhaphy. 4. Cancer surgery in the left eye. 5. Multiple skin cancer resections. 6. I and D of groin abscess. FAMILY HISTORY: Significant for lung cancer, hypertension, heart disease, as well as breast cancer, schizophrenia, and liver cancer. SOCIAL HISTORY: The patient was a previous smoker, but quit in 1982. He denies alcohol abuse. Denies any illicit drug use. He is retired currently. REVIEW OF SYSTEMS: A 12-point review of system was reviewed with the patient, it was negative other than what was commented on the HPI. PHYSICAL EXAMINATION: VITAL SIGNS: Temperature 102.7, pulse 93, respirations 20, blood pressure 130/ 75, and saturation 92% on room air. GENERAL: No apparent distress, communicating, and alert, well-nourished, well-developed, appears stated age. HEENT: Normocephalic, atraumatic. Pupils symmetric and round. Sclerae nonicteric. Trachea midline. Moist mucous membranes. CARDIOVASCULAR: Regular rate and rhythm. Normal S1, S2. Symmetric pulses. CHEST: Nonlabored breathing. LUNGS: Symmetric expansion of lungs. Clear anteriorly. No wheezes. ABDOMEN: Soft, nontender, and nondistended. Positive bowel sounds. No organomegaly. No hernias. Recently right inguinal incision clean, dry, and intact, healing well without evidence of infection. GENITOURINARY: Penis is nonfocal. No drainage or discharge at the meatus, which is patent. Bilateral descended testes. The right testicle is significantly enlarged with a large irregular epididymis, which is tender to palpation, concerning for possible abscess versus severe epididymitis. The left testicle is smaller, less indurated and less inflamed. There is significant scrotal erythema. There is mild scrotal edema. RECTAL: Deferred at this time due to high suspicion for prostatitis. EXTREMITIES: No clubbing, cyanosis, or edema. MUSCULOSKELETAL: No joint deformities or joint erythema noted. Full range of motion. SKIN: Hot and dry. No rashes or lesions. Good turgor. NEUROLOGIC: Cranial nerves 2 through 12 grossly intact. No focal, sensory or motor deficits identified. LYMPHATICS: No palpable lymphadenopathy in the groin, axillary, cervical, or supraclavicular regions. PSYCHIATRIC: Alert and oriented x3. Appropriate mood and affect. LABORATORY DATA: On laboratory evaluation, the full set of labs are in the [employer] system, which I have reviewed. Of note, the patient's white count is 9.4 with a hemoglobin of 11.4, platelet count of 135, creatinine is 1.08. PSA is currently 16.9. IMAGING: CT of the abdomen and pelvis from December 11 demonstrates small abscesses along the right inguinal canal measuring approximately 3.5 x 2.3 x 3.7 cm, abnormal edema of the perivesicular space, which may be postsurgical in nature versus cystitis. A 15 mm soft tissue nodule abutting the right hepatic capsule, which is new from 2017 and may potentially represent a metastatic implant. ASSESSMENT AND PLAN: A 68-year-old white male with recent right inguinal hernia repair with what appears to be severe right epididymitis and possible prostatitis. The CT scan does show multiple small abscesses, which may represent postoperative fluid collections, but given the patient's persistent fevers, I am worried about potential development of a prostate abscess versus epididymal abscess. Given the amount of time that has elapsed since the original CT scan, I would recommend repeating a new CT scan with contrast with adequate hydration, which has been instructed to the patient to avoid acute kidney injury since he does have a solitary kidney. If there is significant abscesses in the right epididymis, I would consider an epididymectomy. If there is a prostatic abscess this could either be drained transrectally or via a transurethral resection of the prostate depending on the location of the abscess. I will obtain the CT with instructions for the patient to hydrate well and we will discuss what to do subsequently. It may be reasonable to contact the patient's general surgeon, who performed the inguinal hernia repair as well to see, if they would like to do anything regarding the patient's febrile illness. I agree with broad-spectrum spectrum multidrug coverage with ceftriaxone and levofloxacin. I will continue to follow along and await results of the CT scan and make further decisions based on these results. For now, I would defer treatment of the liver lesion to outpatient until the infection has resolved. Job ID: [id number] MTDD
[2018-12-15] MEDS: HYDROcodone/Acetaminophen 7.5/325 mg Tablet PO PRN ×3 (04:32→19:20)
[2018-12-15] MEDS: Sodium Chloride 0.9% 1,000 ML IV SCH ×2 (05:36→19:20)
[2018-12-15 08:39] LABS: #Eosinphils 0.2 thou/uL (0.0-0.7); #Lymphocytes 1.3 thou/uL (1.20-3.40); #Monocytes 1.5 thou/uL (0.11-0.59); #Neutrophils 9.1 thou/uL (1.40-6.50); %Basophils 0.2 % (0.0-1.0); %Eosinophils 1.9 % (0.0-10.0); %Lymphocytes 10.6 % (21.0-51.0); %Monocytes 12.1 % (0.0-10.0); %Neutrophils 75.1 % (42.0-75.0); Hemoglobin 12.8 g/dL (14.0-18.0); Mean Corpuscular HGB CONC 32.5 g/dL (32.0-36.0); Mean Corpuscular Hemoglobin 30.7 pg (27.0-31.0); Mean Corpuscular Volume 94.3 fL (78.0-98.0); Mean Platelet Volume 7.8 fL (7.4-10.4); Platelet Count 155 thou/uL (130-400); RBC Distribution Width 12.2 % (11.5-14.5); Red Blood Cell (RBC) Count 4.16 mill/uL (4.70-6.10); White Blood Cell (WBC) Count 12.1 thou/uL (4.8-10.8)
[2018-12-15 08:46] LABS: Anion Gap 11 mmol/L (10-20); BUN (Urea Nitrogen) 13 mg/dL (8.4-25.7); Calc. Creatinine Clearance 67 mL/min (70-130); Calcium 8.6 mg/dL (7.8-10.44); Carbon Dioxide 22 mmol/L (23-31); Chloride 109 mmol/L (98-107); Estimated GFR-MDRD 61; Glucose 84 mg/dL (80-115); Sodium 138 mmol/L (136-145)
--- NOTE | 2018-12-15 09:37 | RAD ---
EXAM: Chest 2 views: HISTORY: Postoperative fever COMPARISON: 12/22/2007 FINDINGS: There is a normal-sized cardiomediastinal silhouette. There is no evidence of consolidation, mass, or pleural effusion. The bones are unremarkable. IMPRESSION: No evidence of acute cardiopulmonary disease
[2018-12-15] MEDS: Tamsulosin HCl 0.4 MG CAP PO SCH (10:03)
[2018-12-15] MEDS: Multivit, Therapeutic 1 TAB PO SCH (10:03)
--- NOTE | 2018-12-15 10:14 | PRG ---
DATE OF SERVICE: 12/15/2018 SUBJECTIVE: The patient continues to have fever. OBJECTIVE: VITAL SIGNS: He had a temperature of 101.6 yesterday evening. Blood pressure 110/66, pulse 65, respirations 20, and pulse ox 94%. HEART: Regular rate and rhythm. LUNGS: Fine left basilar rales. ABDOMEN: Soft and nontender. Scrotum edematous. EXTREMITIES: No edema. LABORATORY DATA: PSA elevated at 16 with previous normal PSA levels. ASSESSMENT: 1. Urosepsis with Serratia marcescens. 2. Acute prostatitis with elevated PSA. 3. Status post right inguinal hernia repair. 4. Scrotal edema. 5. Persistent fever. 6. Right renal cell carcinoma, status post right nephrectomy. 7. Hypertension. 8. Hyperlipidemia. 9. Chronic low back pain. 10. History of kidney stones. PLAN: 1. Appreciate Dr. Marroquin. CT scan was benign appearing. No acute abscess identified with acutely elevated PSA. The patient definitely has evidence of prostatitis. 2. Continue hydration. 3. Continue Rocephin and Levaquin. Antibiotics may need to be adjusted. 4. We will order a chest x-ray. 5. We will consult Dr. Cardona, who performed the inguinal hernia repair. 6. We will continue to discuss with Dr. Marroquin. Job ID: [id number]
--- NOTE | 2018-12-15 10:47 | PRG ---
DATE OF SERVICE: 12/15/2018 SUBJECTIVE: The patient is still having a lot of right-sided testicular and groin pain. States it hurts to move and to close his legs. He is still urinating without difficulty. He continues to have fevers and is on double antibiotic coverage with ceftriaxone and levofloxacin. OBJECTIVE: VITAL SIGNS: Temperature 98.3, pulse 64, respirations 14, blood pressure 133/81, and saturation 95% on room air. GENERAL: No apparent distress, communicating, and alert, appears to be in mild pain, but no severe pain or significant toxic appearance. CARDIOVASCULAR: Regular rate and rhythm. Normal S1 and S2. CHEST: No increased work of breathing. Symmetric expansion. LUNGS: Clear anteriorly. ABDOMEN: Soft, nontender, nondistended. Positive bowel sounds. Well-healed previous incision. SKIN: Warm and dry. No rashes or lesions. : Scrotum is still erythematous and edematous with significant epididymo-orchitis on the right. Incision appears clean, dry, and intact without purulence. RECTAL: Performed gently, which demonstrated a grade 3 prostate without any significant tenderness. No nodularity or bogginess. No fluctuance. EXTREMITIES: No clubbing, cyanosis, or edema. LABORATORY DATA: On laboratory evaluation, the full set of labs are in the [employer] system, which I have reviewed. Of note, the patient's creatinine today is 1.18. White count is 12.1. Urine culture is growing Serratia marcescens sensitive to levofloxacin and ceftriaxone. CT pelvis done yesterday demonstrates slight interval decrease of the size of the inflammatory fluid collection at the right internal inguinal ring with resolution of previously noted gas and no new abnormalities. There is diffuse skin thickening and edema on each side of the scrotum without gas. No evidence of epididymal or prostatic abscess on my review and I have reviewed the images personally. ASSESSMENT AND PLAN: A 68-year-old white male with likely epididymo-orchitis. He has no evidence of prostatitis by exam or by CT findings. His PSA is elevated, likely secondary to infection. He does seem to be improving somewhat, but continues to spike fevers despite double coverage, indicating that he may be developing early abscess or phlegmon in the epididymis. He may require an epididymectomy, but I would like to get the opinion of General Surgery to see if his mesh needs to be revised or removed or if it can be left in place with treatment through this and also whether or not a different antibiotic regimen would be recommended via Infectious Disease consult. Based on the recommendations and the patient's continued treatment course, I will make decision to either take the patient for an epididymectomy or whether continued antibiotic management alone without surgery is indicated. The patient states he would be willing to undergo epididymectomy if necessary. I will continue to follow along and make recommendations. Of note, the mass noted on the liver, which may represent a metastatic lesion does need further workup. We will opt to do so after this current infection as this is not the appropriate time to consider workup of this lesion. Job ID: [id number]
--- NOTE | 2018-12-15 17:20 | PRG ---
DATE OF SERVICE: 12/15/2018 Mr. Mora is seen and examined, has a history of readmission for UTI as well as now epididymitis. Examination of his groin reveals no obvious wound infection. He is point tender over his healing ridge. He has redness and erythema and tenderness to his distal scrotum on both sides. There is icxi-li-yiburgrs swelling in the groin that is consistent and normal after an inguinal hernia repair. ASSESSMENT: Normal postoperative findings in the groin. CT scan shows inflammatory change in the area of his cord structures. However, this would be normal at this point after an inguinal hernia repair. I would suspect if he had any mesh involvement with infection, he would have more significant erythema to the wound itself. No further recommendations for operative exploration of the groin at this point. Continue antibiotics. Plan for epididymitis per Urology. Job ID: [id number]
[2018-12-15] MEDS: cefTRIAXone\\ROCEPHIN 1 GM in Sodium Chloride 0.9% 100 ML IVPB SCH (22:15)
[2018-12-16] MEDS: HYDROcodone/Acetaminophen 7.5/325 mg Tablet PO PRN ×4 (03:18→21:16)
[2018-12-16] MEDS: Sodium Chloride 0.9% 1,000 ML IV SCH ×3 (03:20→21:19)
[2018-12-16 06:44] LABS: #Eosinphils 0.5 thou/uL (0.0-0.7); #Lymphocytes 1.3 thou/uL (1.20-3.40); #Monocytes 1.2 thou/uL (0.11-0.59); #Neutrophils 6.6 thou/uL (1.40-6.50); %Basophils 0.3 % (0.0-1.0); %Eosinophils 4.9 % (0.0-10.0); %Lymphocytes 13.4 % (21.0-51.0); %Monocytes 12.7 % (0.0-10.0); %Neutrophils 68.7 % (42.0-75.0); Hemoglobin 11.3 g/dL (14.0-18.0); Mean Corpuscular HGB CONC 33.2 g/dL (32.0-36.0); Mean Corpuscular Hemoglobin 31.6 pg (27.0-31.0); Mean Corpuscular Volume 95.1 fL (78.0-98.0); Platelet Count 175 thou/uL (130-400); RBC Distribution Width 12.1 % (11.5-14.5); Red Blood Cell (RBC) Count 3.58 mill/uL (4.70-6.10); White Blood Cell (WBC) Count 9.6 thou/uL (4.8-10.8)
[2018-12-16 07:01] LABS: Anion Gap 13 mmol/L (10-20); BUN (Urea Nitrogen) 12 mg/dL (8.4-25.7); Calc. Creatinine Clearance 67 mL/min (70-130); Calcium 8.3 mg/dL (7.8-10.44); Carbon Dioxide 22 mmol/L (23-31); Chloride 110 mmol/L (98-107); Estimated GFR-MDRD 62; Glucose 86 mg/dL (80-115); Potassium 4.7 mmol/L (3.5-5.1); Sodium 140 mmol/L (136-145)
[2018-12-16] MEDS: Tamsulosin HCl 0.4 MG CAP PO SCH (08:11)
[2018-12-16] MEDS: Multivit, Therapeutic 1 TAB PO SCH (08:11)
[2018-12-16] MEDS ORDERED: Polyethylene Glycol 3350 17 GM Packet PO PRN (08:12)
--- NOTE | 2018-12-16 11:31 | PRG ---
DATE OF SERVICE: 12/16/2018 SUBJECTIVE: The patient states he is feeling better. His fever is resolving. He is having more of an appetite. OBJECTIVE: VITAL SIGNS: Temperature 98.2, pulse 67, respirations 16, pulse ox 96, and blood pressure 158/88. HEART: Regular rate and rhythm. LUNGS: Clear. ABDOMEN: Soft, slightly distended. LABORATORY DATA: White count decreased to 9.6, H and H of 11 and 34, and platelet of 175. Sodium 140, potassium 4.7, chloride 110. PSA went from 16.94 to 13.48. ASSESSMENT: 1. Epididymitis. 2. Urosepsis with Serratia marcescens. 3. Elevated PSA reaction to epididymitis. 4. Status post right inguinal repair, evaluated by Dr. Wilks, who feels that he is doing well postop from the standpoint. No evidence of infection of the mesh. 5. Scrotal edema, stable with possible slight improvement from yesterday. 6. Fever, resolving. 7. Right renal cell carcinoma, status post right nephrectomy. 8. Constipation. We will start MiraLAX. 9. Hypertension. 10. Hyperlipidemia. 11. Chronic low back pain. 12. History of kidney stone. 13. Liver lesion 1.5 cm, possible metastatic implant. PLAN: 1. Continue with IV antibiotics. 2. Awaiting consult by Dr. Pryor today. May need to adjust antibiotics. 3. Continue hydration. 4. Continue to increase activity. 5. Start MiraLAX p.r.n. 6. Discussed the liver lesion with the patient. I did review the CT scan and it is suspicious for possible metastatic implant. This was not present on the prior CT of 2017. However, we will work this up as an outpatient. Job ID: [id number]
--- NOTE | 2018-12-16 16:08 | PRG ---
DATE OF SERVICE: 12/16/2018 SUBJECTIVE: The patient states he is feeling much better. His fevers have stopped. His pain and swelling in the scrotum have gone down. He is still on ceftriaxone and Levaquin. Dr. Wilks did come by and see the patient on Dr. Cook' behalf and stated that nothing needed to be done regarding mesh revision. Dr. Pryor' consult is still pending. OBJECTIVE: VITAL SIGNS: Temperature 98.2, pulse 67, respirations 16, blood pressure 158/88, saturation 96% on room air. GENERAL: No apparent distress, communicating and alert. CARDIOVASCULAR: Regular rate and rhythm. ABDOMEN: Soft, nontender, and nondistended. Positive bowel sounds. Incision in the right groin is clean, dry, and intact. : Scrotum less erythema, mild penile edema. Right testicle is still swollen with significantly indurated and enlarged epididymis. LABORATORY DATA: On laboratory evaluation, full set of labs are in the [employer] system which I have reviewed. Of note, white count is 9.6 with a hemoglobin of 11.3, creatinine is 1.17. ASSESSMENT AND PLAN: A 68-year-old white male with severe epididymitis and possible urosepsis with the Serratia marcescens, sensitive to Levaquin and ceftriaxone of which he is on both antibiotics. He is voiding well. His epididymitis seems to be resolving with fevers which have stopped and the patient is feeling better. At the current time, I would not recommend surgical intervention unless the patient does worse or demonstrates a change in clinical course. I will still await Dr. Pryor' recommendations on determining if the patient should remain on Levaquin, which would be my primary recommended antibiotic for him to be discharged on for [address] Pryor' thinks systemic IV antibiotics or a different antibiotic would be a better choice. There is also the concern regarding the liver lesion which will be dealt with on an outpatient basis. Job ID: [id number]
[2018-12-16] MEDS ORDERED: Enoxaparin Sodium 40 MG/0.4 ML SYRINGE SC SCH (18:30)
--- NOTE | 2018-12-16 19:47 | CON ---
DATE OF CONSULTATION: 12/16/2018 REASON FOR CONSULTATION: Urinary tract infection with orchiepididymitis, post hernia operation. HISTORY OF PRESENT ILLNESS: A 68-year-old with history of renal cell carcinoma, status post right nephrectomy [address] [facility], also with a history of nephrolithiasis and recent right inguinal hernia repair by Dr. Cardona. The patient had a urinary catheterization for 8 days after the surgery and then immediately after developed worsening dysuria and testicular pain and swelling. On admission, his temperature is 98.6, pulse 67, BP 101/64. There was a well-healed right inguinal hernia surgical wound. The initial white cell count was 21.4 with bandemia. Urinalysis with bmn-mffsyjcy-qt-count wbc's. The patient had a pelvis CT, which showed fluid collection in the right internal inguinal ring with resolution of gas. There was a CT abdomen and pelvis, which was interpreted as small abscess along the right inguinal canal, but this is probably just normal postop findings. There was evidence of perivesicular space edema. There is a 15 mm nodule abutting the right hepatic capsule. Currently, he is awake. He denies any headaches. No visual symptoms, sore throat, odynophagia, or dysphagia. No dyspnea or chest pain. No abdominal pain. The right groin area is mildly tender. He does have swelling and tenderness in the right testicular region and he is voiding in the urinal without difficulty. PAST MEDICAL HISTORY: Includes renal cell cancer, treated with right nephrectomy in 2017; basal cell carcinoma, left eye; pulmonary hypertension; hypertension; nephrolithiasis; recent herniorrhaphy. FAMILY HISTORY: Lung cancer and CVA. SOCIAL HISTORY: Former smoker, quit in . 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 ALLERGIES: NONE. CURRENT MEDICATIONS: 1. Tylenol. 2. Ceftriaxone. 3. Lovenox. 4. Levaquin. 5. Tamsulosin. PHYSICAL EXAMINATION: VITAL SIGNS: T-max 101.6 to 102 two days ago. He has been afebrile since. Other vital signs are fairly unremarkable. Slight elevation of systolic blood pressure. SKIN: Shows the healed right herniorrhaphy wound. The right testicular area is a bit swollen, mildly erythematous and tender. No lymphadenopathy. Ocular movements conjugate. Nasal passages patent. Oral cavity is normal. NECK: Supple. LUNGS: Symmetric. Clear breath sounds. HEART: S1 and S2. Regular rate. No S3 or S4. ABDOMEN: Soft and not distended. Mild tenderness in the right groin region at the site of the herniorrhaphy. No bladder distention. No joint inflammatory activity. Moves extremities equally. Dorsalis pedis are 1+. NEUROLOGIC: Nonfocal. Plantar response are flexor. Cognitive function appears to be intact. LABORATORY DATA: White cell count was 21.4, down to 9.6; hemoglobin 11; platelets 175 with 68% neutrophils. Sodium 140, creatinine 1.17, and GFR 62. Liver profile normal. CRP was 17.53 when last checked. PSA was 16.94. Microbiology with Serratia marcescens with a broad susceptibility profile including quinolones. ASSESSMENT AND DISCUSSION: Renal cell cancer with right nephrectomy and recent herniorrhaphy with protracted catheterization, which probably led to prostatitis and orchiepididymitis due to Serratia marcescens. We would recommend continuation of oral levofloxacin for probably 2 to 3 weeks depending on clinical progress, may be even 4 weeks in view of the likely prostatitis. There is clear-cut evidence of improvement. The findings in the right groin are probably related to the postop changes and do not represent a true abscess. Job ID: [id number] [facility]
[2018-12-17 07:42] VITALS: BP 158/75; TEMP 99
[2018-12-17] MEDS: Sodium Chloride 0.9% 1,000 ML IV SCH (08:30)
[2018-12-17] MEDS: Multivit, Therapeutic 1 TAB PO SCH (08:32)
[2018-12-17] MEDS: Tamsulosin HCl 0.4 MG CAP PO SCH (08:32)
[2018-12-17] MEDS: HYDROcodone/Acetaminophen 7.5/325 mg Tablet PO PRN ×2 (08:32→14:43)
[2018-12-17] MEDS ORDERED: Enoxaparin Sodium 40 MG/0.4 ML SYRINGE SC SCH (09:00)
--- NOTE | 2018-12-17 11:23 | PRG ---
DATE OF SERVICE: 12/17/2018 SUBJECTIVE: The patient has now turned the corner. No complaints of fever. He has required no pain medicine since 9:15 last night. Swelling of his scrotum has continued to decrease. OBJECTIVE: VITAL SIGNS: Temperature 99.0, pulse 74, respirations 16, pulse ox 92, and blood pressure 158/75. HEART: Regular rate and rhythm without murmur. LUNGS: Clear. ABDOMEN: Soft. GENITOURINARY: Scrotum, no longer full, starting to see creases in the scrotal skin. Swelling is decreased. Edema has decreased. EXTREMITIES: With no edema. LABORATORY DATA: None. ASSESSMENT: 1. Urosepsis with Serratia marcescens. 2. Epididymitis exacerbated by prolonged instrumentation. 3. Elevated PSA with improvement with probable prostatitis. 4. Status post right inguinal hernia repair, stable. 5. Scrotal edema, resolving. 6. Fever, resolving. 7. Right renal cell carcinoma, status post right nephrectomy. 8. Liver lesion 1.5 cm, rule out metastatic implant. 9. Constipation, stable. 10. Hypertension. 11. Hyperlipidemia. 12. Chronic low back pain. 13. History of kidney stone. PLAN: 1. Appreciate Dr. Pryor. 2. The patient may be getting closer to discharge home. 3. I did talk with Oncology. They planned to see him as an outpatient. The patient has been seeing Dr. Montalvo. The patient is to schedule an appointment in December to workup the liver lesion. 4. Plan to eventually discharge the patient on Levaquin p.o. for a total of 3 to 4 weeks' duration as well as Sprague for pain control. Job ID: [id number]
--- NOTE | 2018-12-17 12:32 | EKG ---
Test Reason : Blood Pressure : / mmHG Vent. Rate : 083 BPM Atrial Rate : 083 BPM P-R Int : 134 ms QRS Dur : 108 ms QT Int : 382 ms P-R-T Axes : 004 -26 025 degrees QTc Int : 448 ms Normal sinus rhythm Incomplete right bundle branch block Borderline ECG Confirmed by DINORAH HOWELL ([id number]), assistant production editor RAMY NAPIER ([id number] on 12/17/2018 12:31:44 PM Referred By: Confirmed By:DINORAH HOWELL
== END 2018-12-17 18:01 | disposition home or self-care (01) | DRG 872 ==
LOC: ERS 17:05 → T4-A 20:00
PROVIDERS: ADMIT Family Medicine; ATTEND Family Medicine
DX: A41.50 Gram-negative sepsis, unspecified (principal); N41.0 Acute prostatitis; N39.0 Urinary tract infection, site not specified; E78.5 Hyperlipidemia, unspecified; G89.29 Other chronic pain; M54.5 Low back pain; I10 Essential (primary) hypertension; N50.89 Other specified disorders of the male genital organs; K59.00 Constipation, unspecified; K76.9 Liver disease, unspecified; N45.3 Epididymo-orchitis; B96.89 Other specified bacterial agents as the cause of diseases classified elsewhere; Z85.528 Personal history of other malignant neoplasm of kidney; Z90.5 Acquired absence of kidney; Z85.828 Personal history of other malignant neoplasm of skin; Z87.891 Personal history of nicotine dependence; Z87.442 Personal history of urinary calculi
CPT/HCPCS: 36415; 71045; 71046; 72193; 74177; 80048; 80053; 81003; 81015; 83605; 84153; 85025; 86140; 87040; 87077; 87086; 87186; 87804; 93005; 96361; 96365; J0696; J1650; J1956; J3490; Q9966

== ENCOUNTER 2019-04-21 08:16 | Outpatient (CLI) | payer MEDICARE ==
--- NOTE | 2019-04-21 10:09 | CT ---
CT Chest Abd Pelvis W Con History: Right kidney cancer Comparison: CT abdomen pelvis December 11, 2018 Findings: Scattered atelectasis. No suspicious pulmonary nodule. Thyroid is unremarkable. No mediastinal adenopathy. No pericardial effusion. The soft tissue implant adjacent to the capsule posterior aspect right lobe the liver continues to in crease in size now measuring 2.5 cm, previously 1.5 cm. Small omental containing incisional hernia in the midline upper abdomen. The right nephrectomy bed is clear. There is a cyst interpolar left kidney with layering calcificatio ns. Numerous cysts inferior pole left kidney appear relatively similar. No solid renal enhancing mass. The aortic contour is nonaneurysmal. Prior right inguinal hernia repair. Right inguinal fluid collection has partially resolved with small residual collection an the proximal lingual canal which does not contain gas. The appendix is visualized and is normal. No retroperitoneal periaortic adenopathy. Pancreas is unrem arkable as well as the spleen. No suspicious osteolytic or osteoblastic lesions. Impression: 1. Continued size increase of the soft tissue nodule abutting the right hepatic capsule. Further inte rrogated with fine-needle aspiration/biopsy versus PET/CT. No other evidence of residual or metastatic disease. 2. Small volume seroma right proximal inguinal canal with resolution of abscess.
== END 2019-04-21 08:17 | disposition home or self-care (01) ==
LOC: BICCT 08:16
PROVIDERS: ATTEND Internal Medicine Hematology & Oncology
DX: C64.1 Malignant neoplasm of right kidney, except renal pelvis (principal); K76.89 Other specified diseases of liver; S30.1XXA Contusion of abdominal wall, initial encounter; L02.214 Cutaneous abscess of groin
CPT/HCPCS: 71260; 74177

== ENCOUNTER 2019-05-13 08:18 | Day surgery (SDC) | payer MEDICARE ==
[2019-05-12 14:21] VITALS: BMI 26.1
[2019-05-13 08:35] LABS: PTT 28.3 SEC (22.9-36.1); Prothrombin Time 13.3 SEC (12.0-14.7)
--- NOTE | 2019-05-13 13:36 | CT ---
CT-guided abdominal mass biopsy DATE: 05/13/2019 HISTORY: 68-year-old male status post right nephrectomy for renal cell carcinoma now has a small 2.5 cm growin g mass located between the posterior inferior surface of the liver and the posterior inferior right rib cage. TECHNIQUE: Signed informed consent obtained. Patient placed in left lateral decubitus position. The skin over th e right flank was prepped and draped in usual sterile fashion. 25-gauge needle used to apply buffered lidocaine superficially. Using step CT guidance, the 25-gauge needle was used to locally ane sthetize the intercostal muscles. 17-gauge introducer needle advanced through right lower intercostal space with distal tip placed at the posterior lateral edge of the mass. 18-gauge biopsy n eedle placed through the introducer needle in coaxial fashion. Biopsy gun fired, yielding core tissue sample which was smeared on a slide and was examined by pathologist, who stated that there was neoplastic material. This was placed in formalin. 2 more biopsy passes were made. Introducer needle was removed. Postbiopsy short range CT scan shows no hemorrhage or any other complication. Pat ient tolerated the procedure well. IMPRESSION: Technically successful 18-gauge core biopsy of the small intra-abdominal mass in the right posterior flank abutting the posterior inferior surface of the right lobe of liver x3.
== END 2019-05-13 12:00 | disposition home or self-care (01) ==
LOC: CT 08:18
PROVIDERS: ATTEND Internal Medicine Hematology & Oncology
PROC: 0FD13ZX Extraction of Right Lobe Liver, Percutaneous Approach, Diagnostic (ICD-10-PCS; principal; 2019-05-13)
DX: C78.7 Secondary malignant neoplasm of liver and intrahepatic bile duct (principal); C80.1 Malignant (primary) neoplasm, unspecified; I10 Essential (primary) hypertension; E78.5 Hyperlipidemia, unspecified; G89.29 Other chronic pain; M54.9 Dorsalgia, unspecified; Z87.891 Personal history of nicotine dependence; Z85.528 Personal history of other malignant neoplasm of kidney
CPT/HCPCS: 36415; 47000; 77002; 85610; 85730; 88307; 88333; 88341; 88342

== ENCOUNTER 2019-07-11 08:32 | Outpatient (CLI) | payer MEDICARE ==
--- NOTE | 2019-07-11 09:45 | CT ---
CT THORAX WITH CONTRAST: DATE: 07/11/2019 HISTORY: 68-year-old male with right kidney neoplasm ICD-10: D 49.519 COMPARISON: 04/21/2019 FINDINGS: Lungs are clear of suspicious pulmonary nodules, consolidation, edema, or groundglass lesions. No pleural effusion or pneumothorax. No thoracic aortic aneurysm or dissection. No mediastinal or hilar lymphadenopathy. Trachea and major bronchi are patent and clear. No osteolytic or osteoblastic lesion identified in the ribs, thoracic spine, or sternum. Surgical clips in upper retroperitoneum. Absent right kidney. Unremarkable pancreas, liver, and splee n. Several exophytic cysts at lower pole left kidney. No interval change. IMPRESSION: Negative. No active intrathoracic disease.
[2019-07-11] MEDS ORDERED: Iopamidol 370 76% 100 ML VIAL ONE (13:19)
== END 2019-07-11 08:33 | disposition home or self-care (01) ==
LOC: CT 08:32
PROVIDERS: ATTEND Thoracic Surgery (Cardiothoracic Vascular Surgery)
DX: D49.519 Neoplasm of unspecified behavior of unspecified kidney (principal); R16.0 Hepatomegaly, not elsewhere classified
CPT/HCPCS: 71260; 82565; Q9967

== ENCOUNTER 2019-07-11 10:00 | Inpatient (IN) | payer MEDICARE ==
[2019-07-11 12:09] LABS: Hemoglobin 16.5 g/dL (14.0-18.0); Mean Corpuscular HGB CONC 32.7 g/dL (32.0-36.0); Mean Corpuscular Hemoglobin 30.6 pg (27.0-31.0); Mean Corpuscular Volume 93.6 fL (78.0-98.0); Mean Platelet Volume 8.5 fL (7.4-10.4); Platelet Count 174 thou/uL (130-400); RBC Distribution Width 12.2 % (11.5-14.5); Red Blood Cell (RBC) Count 5.39 mill/uL (4.70-6.10); White Blood Cell (WBC) Count 7.3 thou/uL (4.8-10.8)
[2019-07-11 13:00] LABS: Anion Gap 15 mmol/L (10-20); BUN (Urea Nitrogen) 21 mg/dL (8.4-25.7); Calc. Creatinine Clearance 0 mL/min (70-130); Calcium 9.4 mg/dL (7.8-10.44); Carbon Dioxide 20 mmol/L (23-31); Chloride 111 mmol/L (98-107); Estimated GFR-MDRD 42; Glucose 134 mg/dL (80-115); Potassium 4.5 mmol/L (3.5-5.1); Sodium 141 mmol/L (136-145)
[2019-07-12] MEDS ORDERED: Midazolam HCl 2 mg/2 ml Vial ONE (08:17)
[2019-07-12] MEDS ORDERED: Fentanyl 250 MCG/5 ML VIAL ONE (08:23)
[2019-07-12] MEDS ORDERED: Lidocaine 1% w/Epinephrine 1:100K 20 ML VIAL ONE (09:07)
[2019-07-12] MEDS ORDERED: Fentanyl 100 MCG/2 ML VIAL ONE (10:14)
[2019-07-12] MEDS ORDERED: Promethazine HCl 25 MG/ML VIAL SLOW IVP PRN (10:16)
[2019-07-12] MEDS ORDERED: Ondansetron HCl/PF 4 MG/2 ML Vial IVP PRN (10:16)
[2019-07-12] MEDS ORDERED: Promethazine HCl 25 MG/ML VIAL IM PRN ×2 (10:16→10:24)
[2019-07-12] MEDS ORDERED: traMADol HCl 50 MG TAB PO PRN (10:24)
[2019-07-12] MEDS ORDERED: Fentanyl 100 MCG/2 ML VIAL SLOW IVP PRN (10:24)
[2019-07-12] MEDS ORDERED: Ondansetron PF 4 MG/2 ML Vial IVP PRN (10:24)
[2019-07-12] MEDS ORDERED: Acetaminophen 325 MG TAB PO PRN (10:24)
--- NOTE | 2019-07-12 11:09 | RAD ---
EXAM: Single view of the chest HISTORY: Fever; status post thoracotomy and rib resection COMPARISON: CT chest 07/11/2019 FINDINGS: Single view of the chest shows a normal sized cardiomediastinal silhouette. There is free air beneath the right hemidiaphragm. There is no evidence of consolidation, mass, or pleural effusion. The bones are unremarkable. IMPRESSION: 1. No evidence of acute cardiopulmonary disease 2. Free air beneath the diaphragm. The patient's nurse was notified of the findings at 11:06 AM on . This is likely from the patient's recent surgery.
[2019-07-12] MEDS ORDERED: PROPOFOL 200 MG/20 ML VIAL ONE (11:42)
[2019-07-12] MEDS ORDERED: Dexamethasone 20 MG/5 ML VIAL ONE (11:42)
[2019-07-12] MEDS ORDERED: PHENYLEPHRINE-NS 100 MCG/ML 10 ML SYRINGE ONE (11:42)
[2019-07-12] MEDS ORDERED: Ondansetron PF 4 MG/2 ML Vial ONE (11:42)
[2019-07-12] MEDS ORDERED: ePHEDrine/0.9% NaCl/PF SYRINGE 50 mg/10 ml ONE (11:42)
[2019-07-12] MEDS ORDERED: Lidocaine 1% PF 5 ML VIAL ONE (11:42)
[2019-07-12] MEDS ORDERED: Vecuronium 10 MG VIAL ONE (11:42)
[2019-07-12] MEDS ORDERED: Glycopyrrolate 0.2 MG/ML 5 ML SYRINGE ONE (11:42)
[2019-07-12 11:45] VITALS: BMI 24.7
[2019-07-12] MEDS: Lactated Ringer's 1,000 ML IV SCH (11:54)
[2019-07-12] MEDS: CEFAZOLIN 2 GM in Premix Bag 1 BAG IVPB SCH ×2 (14:44→23:56)
[2019-07-12] MEDS: Fentanyl 100 MCG/2 ML VIAL SLOW IVP PRN ×3 (14:44→22:37)
--- NOTE | 2019-07-12 15:33 | OP ---
DATE OF PROCEDURE: 07/12/2019 PREOPERATIVE DIAGNOSIS: Recurrent or metastatic renal cell carcinoma. POSTOPERATIVE DIAGNOSIS: Recurrent or metastatic renal cell carcinoma. PROCEDURE PERFORMED: Resection of the 11th rib and underlying mass. ANESTHESIA: General. ESTIMATED BLOOD LOSS: Minimal. DESCRIPTION OF PROCEDURE: After adequate anesthesia had been obtained, incision was made over the 11th rib and it was resected. The latissimus had been incised with fibers and mobilized to allow access to this rib. After removal of the rib, the area was palpated and the tumor was identified. Peritoneum was initially entered, and the tumor was not adjacent to any intraperitoneal structures and in fact was covered by parietal peritoneum. Once into the peritoneal cavity, I palpated the edges of the tumor and excised the tumor. There was one satellite nodule immediately adjacent to the tumor that was included with the specimen. In the process of taking out the tumor with margins, the portion of the diaphragm was excised and the pleura was entered as well. Following removal of the tumor, additional palpation and inspection revealed no other disease. Pleura was then closed with reapproximating the diaphragm to the region of the 10th rib with interrupted [id number] Vicryl sutures. Air was then evacuated with a red rubber catheter prior to tying the last suture. The retroperitoneum could not be completely closed due to the absence of the 11th rib; however, the latissimus edges were reapproximated with interrupted [id number] sutures, and then the subcutaneous tissue and skin were closed with running layer. The patient is to be taken to the recovery room. Job ID: [id number]
[2019-07-12] MEDS: Tamsulosin HCl 0.4 MG CAP PO SCH (20:49)
[2019-07-13] MEDS: Fentanyl 100 MCG/2 ML VIAL SLOW IVP PRN ×2 (03:07→06:08)
[2019-07-13 03:47] LABS: #Lymphocytes 1.2 thou/uL (1.20-3.40); #Monocytes 1.2 thou/uL (0.11-0.59); #Neutrophils 13.4 thou/uL (1.40-6.50); %Basophils 0.1 % (0.0-1.0); %Eosinophils 0.1 % (0.0-10.0); %Lymphocytes 7.3 % (21.0-51.0); %Monocytes 7.7 % (0.0-10.0); %Neutrophils 84.8 % (42.0-75.0); Hemoglobin 13.2 g/dL (14.0-18.0); Mean Corpuscular HGB CONC 31.6 g/dL (32.0-36.0); Mean Corpuscular Hemoglobin 29.8 pg (27.0-31.0); Mean Corpuscular Volume 94.1 fL (78.0-98.0); Mean Platelet Volume 8.5 fL (7.4-10.4); Platelet Count 178 thou/uL (130-400); Red Blood Cell (RBC) Count 4.45 mill/uL (4.70-6.10); White Blood Cell (WBC) Count 15.8 thou/uL (4.8-10.8)
[2019-07-13 04:03] LABS: Anion Gap 9 mmol/L (10-20); BUN (Urea Nitrogen) 18 mg/dL (8.4-25.7); Calc. Creatinine Clearance 57 mL/min (70-130); Calcium 8.6 mg/dL (7.8-10.44); Carbon Dioxide 27 mmol/L (23-31); Chloride 107 mmol/L (98-107); Estimated GFR-MDRD 52; Glucose 121 mg/dL (80-115); Potassium 4.5 mmol/L (3.5-5.1); Sodium 138 mmol/L (136-145)
[2019-07-13] MEDS: Lactated Ringer's 1,000 ML IV SCH (06:19)
[2019-07-13] MEDS: Polyethylene Glycol 3350 17 GM Packet PO SCH (07:47)
[2019-07-13] MEDS: CEFAZOLIN 2 GM in Premix Bag 1 BAG IVPB SCH (07:47)
[2019-07-13] MEDS: Tamsulosin HCl 0.4 MG CAP PO SCH ×2 (07:48→20:49)
[2019-07-13] MEDS: HYDROcodone/Acetaminophen 10/325 mg Tablet PO PRN ×4 (07:48→20:49)
--- NOTE | 2019-07-13 09:19 | RAD ---
PORTABLE CHEST: Date: 07/13/2019 HISTORY: Post thoracotomy follow-up. COMPARISON: 07/12/2019. FINDINGS: Some linear opacities in the left lower lung again noted, suggesting atelectasis, stable from 020. Right lung remains clear and unchanged. IMPRESSION: No acute interval change. POS: [facility]
[2019-07-14] MEDS: HYDROcodone/Acetaminophen 10/325 mg Tablet PO PRN ×3 (03:08→13:59)
[2019-07-14] MEDS: Tamsulosin HCl 0.4 MG CAP PO SCH (08:33)
[2019-07-14] MEDS: Polyethylene Glycol 3350 17 GM Packet PO SCH (08:33)
[2019-07-14] MEDS ORDERED: Enoxaparin Sodium 40 MG/0.4 ML SYRINGE SC SCH (09:00)
[2019-07-14 18:23] VITALS: BP 124/75; TEMP 98.7
--- NOTE | 2019-07-15 07:46 | DIS ---
DATE OF ADMISSION: 07/12/2019 DATE OF DISCHARGE: 07/14/2019 HOSPITAL COURSE: The patient was admitted, underwent a resection of his 11th rib and underlying mass. The mass appeared to be contained within the fascia and did not extend through the peritoneal cavity. It was not directly involving the rib and had no direct approximation to the liver. Grossly the margins were free. 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 The patient will resume his home medications and will receive a prescription for [employer]. Job ID: [id number]
== END 2019-07-14 18:39 | disposition home or self-care (01) | DRG 658 ==
LOC: SURG A 07-12 06:55 → IMCU/EMU 07-12 11:58 → SURG A 07-13 16:51
PROVIDERS: ADMIT Thoracic Surgery (Cardiothoracic Vascular Surgery); ATTEND Thoracic Surgery (Cardiothoracic Vascular Surgery)
PROC: 0WBH0ZZ Excision of Retroperitoneum, Open Approach (ICD-10-PCS; principal; 2019-07-12)
DX: C64.9 Malignant neoplasm of unspecified kidney, except renal pelvis (principal); E78.5 Hyperlipidemia, unspecified; J30.2 Other seasonal allergic rhinitis; F17.210 Nicotine dependence, cigarettes, uncomplicated; Z86.711 Personal history of pulmonary embolism; Z79.899 Other long term (current) drug therapy; N40.0 Benign prostatic hyperplasia without lower urinary tract symptoms
CPT/HCPCS: 36415; 71045; 71260; 80048; 82565; 85025; 85027; 86850; 86900; 86901; 88305; 88307; 88311; 88331; J0690; J1100; J1650; J2001; J2250; J2405; J2704; J3010; Q9967

== ENCOUNTER 2020-04-13 08:37 | Outpatient (CLI) | payer MEDICARE ==
--- NOTE | 2020-04-13 10:19 | CT ---
EXAM: CT chest, abdomen, and pelvis with IV contrast: HISTORY: Renal cancer post right nephrectomy. Patient had mass removed adjacent to posterior liver in June 2019. COMPARISON: 04/21/2019. FINDINGS: CT THORAX: Lungs: Tiny 4 mm pulmonary nodule seen in the lateral aspect of the right upper lobe (image 16, serie s 3). No additional discrete pulmonary nodule or mass is seen within the lungs bilaterally. There is mild scarring posterior right lower lobe. Pleura: No pleural effusion. Lymph nodes: No enlarged lymph nodes are seen by CT size criteria. Mediastinum: No acute process of the mediastinal structures. Chest wall: No abnormalities CT ABDOMEN AND PELVIS: Liver: Punctate focus of enhancement posterior right hepatic lobe not definitely seen on prior exam. This could represent either small hemangioma or tiny vascular malformation. However, a small subcentimeter low-density focus was seen in this expected location on study of 12/11/2018. This can be reevaluated on follow-up exam. No additional hepatic lesion is seen. Gallbladder: Within normal limits. Pancreas: Within normal limits. Spleen: Within normal limits. Adrenal glands: Within normal limits. Kidneys: Small hypodense lesion left kidney likely to related to a cyst with milk of calcium seen pos teriorly is again noted. No enhancing left renal mass is seen. Again noted are cysts at the inferior pole left kidney. Postoperative changes related to right nephrectomy are seen. Urinary Bladder: The urinary bladder is unremarkable. Reproductive organs: Within normal limits for patient's age. Bowel: Normal in caliber. Adenopathy:No enlarged lymph nodes are seen by CT size criteria. Previously seen soft tissue implant adjacent to the capsule of the posterior segment right hepatic lobe is again seen which has enlarged and measures approximately 2.5 cm with this implant previously measured approximately 1.5 cm . The larger implant seen posterior to the liver located further laterally has been excised in the interim. There is now evidence of a posterolateral hernia defect likely at site of incision with the colon extending into the large defect as well as portion of the inferior right hepatic lobe. There are no findings to suggest a bowel obstruction. Peritoneum: No free fluid or fluid collection is seen. No free intraperitoneal gas is identified. The re is a low-density area seen in the region of the right inguinal canal which may related to prior surgery. Small fluid and gas collection was seen on this region on CT exam in 12/11/2018. This low-den sity area is stable when compared to study on 04/21/2019. This could be related to prior hernia repair in postoperative scarring, clinical correlation is suggested. Abdominal wall: Ventral abdominal wall fat-containing hernia seen in the epigastric region. Postopera tive scarring right anterolateral abdomen is present. Osseous structures: No suspicious lytic or sclerotic osseous lesion. IMPRESSION: 1. Previously noted hypodense implant at the more lateral and posterior aspect posterior segment righ t hepatic lobe has been removed, and there is now a dominant hernia defect in this region likely due to incisional hernia which contains a small portion of the liver and ascending colon. 2. The additional implant posterior to the liver capsule right hepatic lobe located more medial than the previously excised nodule has enlarged previously measuring 1.5 cm and now measures approximately 2.5 cm. 3. Subcentimeter focus of enhancement posterior right hepatic lobe. This could represent a small vasc ular malformation or hemangioma. However this was not seen on prior exams, there was a small low-density focus seen in this region on a CT exam on 12/11/2018. Follow-up evaluation is recommended given very small size of this focus of enhancement. 4. Low-density area right inguinal canal. Fluid and gas collection was seen in this region on CT exam on 12/11/2018. However this low-density area is stable compared to study on 04/21/2019 may be attributable to postoperative changes and possibly prior hernia repair. Clinical correlation is recommended.
[2020-04-13] MEDS ORDERED: Iopamidol-370 76% 500 ML 1 ML ONE (15:23)
== END 2020-04-13 08:38 | disposition home or self-care (01) ==
LOC: BICCT 08:37
PROVIDERS: ATTEND Internal Medicine Hematology & Oncology
DX: C64.1 Malignant neoplasm of right kidney, except renal pelvis (principal)
CPT/HCPCS: 71260; 74177; 82565; Q9967

== ENCOUNTER 2020-08-17 09:06 | Outpatient (CLI) | payer MEDICARE ==
--- NOTE | 2020-08-17 10:32 | CT ---
EXAM: CT chest, abdomen, and pelvis with IV contrast: HISTORY: Malignant neoplasm right kidney except renal pelvis. COMPARISON: 04/13/2020 FINDINGS: CT THORAX: Lungs: There is a nodular density seen in the right lung apex measuring 9 mm previously measuring 7 m m. However, this nodular density has a more tubular configuration on the sagittal and coronal reformatted images and is thought to more likely be related to a mildly dilated vessel in this region and may represent a small vascular malformation. Previously seen 4 mm pulmonary nodule lateral aspect right upper lobe is less well delineated on toda y's exam compared to prior study likely due to slice selection. No additional discrete pulmonary nodule or mass is seen. Scattered linear densities are seen in the lungs with may represent areas of scarring and/or atelectasis. Pleura: No pleural effusion. Lymph nodes: No enlarged lymph nodes are seen by CT size criteria. Mediastinum: Minimal vascular calcifications are seen at the aortic arch. Chest wall: No abnormalities CT ABDOMEN AND PELVIS: Liver: Previously described tiny focus of enhancement in the right hepatic lobe is not visualized on this exam. No focal hepatic lesion is appreciated on the current study. Gallbladder: Within normal limits. Pancreas: Within normal limits. Spleen: Within normal limits. Adrenal glands: Within normal limits. Kidneys: Stable scattered hypodense cystic lesions left kidney. Evidence of right nephrectomy Urinary Bladder: The urinary bladder is unremarkable. Reproductive organs: Within normal limits for patient's age. Bowel: Normal in caliber. Adenopathy:No enlarged lymph nodes are seen by CT size criteria. A stable soft tissue implant is again seen adjacent to the posterior segment right hepatic lobe measu ring 2.5 cm. No new metastatic deposits are seen within the abdomen or pelvis. Peritoneum: No free fluid or fluid collection is seen. No free intraperitoneal gas is identified. Abdominal wall: Previously noted posterolateral hernia defect right flank region is again seen with c olon and portion of the right hepatic lobe extending into the defect similar to prior study. There is no evidence of a bowel obstruction. Ventral abdominal wall fat-containing hernia epigastric region is again seen. Scarring right anterola teral abdominal wall is seen. Low-attenuation area within the region of the origin of the right inguinal canal is again seen and unchanged and likely postoperative in origin and may related to prio r hernia repair. Osseous structures: Sclerotic density left sacrum likely bone island. No suspicious lytic or scleroti c osseous lesions are identified. IMPRESSION: 1. Stable small soft tissue implant posterior to the capsule of the right hepatic lobe likely due to metastatic deposit. 2. Previously seen focus of enhancement right hepatic lobe is not visualized on this exam. 3. Evidence of right nephrectomy with large hernia defect posterolateral right flank region which con tains a portion of the liver as well as the colon. There is no bowel obstruction. 4. Tubular structure right lung apex is suggestive of a dilated vascular structure. Small vascular ma lformation is a possibility. 5. Remainder of the CT chest, abdomen, and pelvis is stable compared to prior study.
[2020-08-17] MEDS ORDERED: Iopamidol-370 76% 500 ML 1 ML ONE (11:49)
== END 2020-08-17 09:07 | disposition home or self-care (01) ==
LOC: BICCT 09:06
PROVIDERS: ATTEND Internal Medicine Hematology & Oncology
DX: C64.1 Malignant neoplasm of right kidney, except renal pelvis (principal); K46.9 Unspecified abdominal hernia without obstruction or gangrene; Z90.5 Acquired absence of kidney
CPT/HCPCS: 71260; 74177; 82565; Q9967

== ENCOUNTER 2021-02-15 08:32 | Outpatient (CLI) | payer MEDICARE ==
[2021-02-15] MEDS ORDERED: Iopamidol-370 76% 500 ML 1 ML ONE (10:26)
== END 2021-02-15 08:33 | disposition home or self-care (01) ==
LOC: BICCT 08:32
PROVIDERS: ATTEND Internal Medicine Hematology & Oncology
DX: C64.1 Malignant neoplasm of right kidney, except renal pelvis (principal); R91.1 Solitary pulmonary nodule
CPT/HCPCS: 71260; 74177; 82565; Q9967

== ENCOUNTER 2021-11-08 08:01 | Outpatient (CLI) | payer MEDICARE ==
[2021-11-08] MEDS ORDERED: Iopamidol 370 76% 100 ML VIAL ONE (11:50)
== END 2021-11-08 08:02 | disposition home or self-care (01) ==
LOC: CT 08:01
PROVIDERS: ATTEND Internal Medicine Hematology & Oncology
DX: C64.1 Malignant neoplasm of right kidney, except renal pelvis (principal)
CPT/HCPCS: 71260; 74177; 82565

== ENCOUNTER 2023-04-20 09:01 | Outpatient (CLI) | payer MEDICARE | END 2023-04-20 09:02 | disposition home or self-care (01) | LOC: BICCT 09:01 | PROVIDERS: ATTEND Internal Medicine Hematology & Oncology | DX: C64.9 Malignant neoplasm of unspecified kidney, except renal pelvis (principal); R91.8 Other nonspecific abnormal finding of lung field; K86.89 Other specified diseases of pancreas; R16.0 Hepatomegaly, not elsewhere classified | CPT/HCPCS: 71260; 74177 ==

== ENCOUNTER 2023-10-05 08:32 | Outpatient (CLI) | payer MEDICARE | END 2023-10-05 08:33 | disposition home or self-care (01) | LOC: BICCT 08:32 | PROVIDERS: ATTEND Internal Medicine Hematology & Oncology | DX: C64.1 Malignant neoplasm of right kidney, except renal pelvis (principal); K43.9 Ventral hernia without obstruction or gangrene; R16.0 Hepatomegaly, not elsewhere classified; Z90.5 Acquired absence of kidney | CPT/HCPCS: 71260; 74177; Q9967 ==

== ENCOUNTER 2024-04-18 08:01 | Outpatient (CLI) | payer MEDICARE, OTHER ==
[2024-04-18] MEDS ORDERED: Iopamidol 370 76% 100 ML VIAL ONE (09:39)
== END 2024-04-18 08:02 | disposition home or self-care (01) ==
LOC: BICCT 08:01
PROVIDERS: ATTEND Internal Medicine Hematology & Oncology
DX: C64.1 Malignant neoplasm of right kidney, except renal pelvis (principal); R91.1 Solitary pulmonary nodule
CPT/HCPCS: 36415; 71260; 74177; 82565